=== PATIENT | male | born 1940 | race Caucasian/White ===

== ENCOUNTER 2019-08-05 00:36 | Inpatient (IN) | payer MEDICARE, MEDICAID ==
[~2019-08-05] VITALS: Ht 165.1 cm; Wt 95.5 kg
--- NOTE | 2019-08-05 01:35 | NUR ---
GIANCARLOADELA CARO a 78 year old M admitted via wheel chair from the EMERGENCY ROOM as a voluntary admission. Arrived on unit at 0135. ALLERGIES: NKA. Vital signs are: [id number] 148/82 . The client's POA,Gayathri Andrew,gave verbal consent for the following forms with stated understanding: Authorization For The Release of Medical Information, Clothing List, Consent to Voluntary Admission and Hospitalization, Consent and Release Forms/Receipt of Rights, Acknowledgement of Advance Directive Information, Behavioral Health Consent Form, and Informed Consent of Medications. Admitted under the services of Dr. DAVID ZENG,[facility]. A search was conducted and hazardous articles were removed. Client was oriented to the unit. LIGIA FITCH
--- NOTE | 2019-08-05 01:40 | NUR ---
Patient sitting in gerichair on admission to floor. Patient very fidgety and made measuring wounds difficult at this time.
[2019-08-05] MEDS ORDERED: ASPIRIN ADULT L81 M2 PO (01:58)
[2019-08-05] MEDS ORDERED: ARICEPT10 M1 PO (01:59)
[2019-08-05] MEDS ORDERED: COLACE100 MG PO (02:01)
[2019-08-05] MEDS ORDERED: DEPAKOTE500 M1 PO (02:02)
[2019-08-05] MEDS ORDERED: ZESTORETIC 10-1 EACH PO (02:04)
[2019-08-05] MEDS ORDERED: CLARITIN10 MG PO (02:07)
[2019-08-05] MEDS ORDERED: MEMANTINE HCL5 MG PO (02:08)
[2019-08-05] MEDS ORDERED: GLUCOPHAGE500 M1 PO (02:09)
--- NOTE | 2019-08-05 02:20 | NUR ---
DR GONZALEZ NOTIFIED OF MEDICAL CONSULT & MED REQ IS READY FOR REVIEW. SHE STATED CONSULT TO GO UNDER DR KING.
[2019-08-05 02:29] VITALS: BP 148/82
--- NOTE | 2019-08-05 05:22 | NUR ---
ADELA CAMACHO [id number] Please refer to the physician's history and physical for past medical history, comorbid conditions, and allergies. Diagnosis: INTERMITTENT EXPOLSIVE DISORDER Salty Score: 18,AT RISK WOUND DESCRIPTIONS: This nurse is unable to evaluate patient for skin impairments at this time. Nurse caring for patient Toshia DE JESUS stated that patient had to be given PRN medications prior to being brought up for the ED due to patient striking at staff. Patient was 1 on 1 with secruity in the ED. Nurse caring for patient stated he has an area to periarea and intact scabbed areas noted to right lower extremity. ED taken photographs prior to admission of periarea and right lower extremity. Nurse caring for patient stated patient is incontient of urine. Surface the patient is resting on: Mark Anthonyair SKIN PREVENTION RECOMMENDATION: 1. Pressure redistribution support surface as appropriate 2. Elevate heels 3. Remove boots/TEDS every shift and reapply 4. Head of bed 30 degrees as tolerated 5. Assess nutrition and hydration 6. Manage moisture 7. Avoid the use of containment devices while in bed 8. Use absorptive products on surfaces limit layers of linens on bed 9. Turn and reposition every 1-2 hours in bed and every 1 hour in chair as tolerated 10. Weight shifts every 15 minutes while up in chair 11. Offloading with pillows or device to keep heels elevated off bed 12. Monitor skin at least every shift 13. Inspect under medical devices twice a day WOUND TREATMENT RECOMMENDATIONS: Patient is ordered nystatin powder every 12 hours for periarea. Wheelchair cushion when oob Cleanse buttocks with soap and water and apply hydraguard every shift and prn for soiling. D/C fran
--- NOTE | 2019-08-05 05:43 | NUR ---
Patient slept approx. 1.5 hours since admission. Q 15 minute safety checks continued and maintained.
--- NOTE | 2019-08-05 07:54 | NUR ---
PHYSICAL THERAPY Screen and PT eval received will follow Nathalie Lion PT
[2019-08-05 08:00] VITALS: BP 153/85
--- NOTE | 2019-08-05 08:00 | NUR ---
Treatment Plan meeting was held with Dr. Larkin, COBY Diaz, RN, AT, ASTRO TECHNICIAN-S and [employer] in attendance. Plan for discharge next week. Pt. came to [facility] from [place]. Will reach out to facility today to discuss discharge Planning.
--- NOTE | 2019-08-05 08:41 | NUR ---
Dr. Guardado notified of wound care recommendations.
--- NOTE | 2019-08-05 11:25 | NUR ---
Spoke with Anais at [facility]. 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 Provided with updates and discharge plan for next week.
--- NOTE | 2019-08-05 11:31 | NUR ---
AM GROUP PT WAS PRESENT FOR MORNING GROUP THERAPY RECLINED IN A PAMELLA CHAIR SLEEPING. PT WOKE AND WAS ATTEMPTING TO PUT THE FOOTSTOOL DOWN. PT THEN ATTEMPTED TO GET UP ON HIS OWN WITHOUT AWARENESS FOR HIS SAFETY. PT STATED, "I GOTTA TAKE A LEAK" WHEN ASKED TO REMAIN SEATED AND WAIT FOR HELP, PT PUSHED ME ASIDE AND ATTEMPTED TO STAND ON HIS OWN. PT PITCHED FORWARD BUT I WAS ABLE TO GET HIM BACK IN THE CHAIR WITH HELP FROM NURSING.
--- NOTE | 2019-08-05 15:02 | NUR ---
Family meeting held via telephone with pt's daughter/DPOAHC Gayathri Lorrie. Gayathri provided patient's history. Per Gayathri, pt is a somewhat difficult person and is very sexist. Pt has a history of ETOH abuse. Discussed current medications. Confirmed discharge plan of pt returning to [facility].
--- NOTE | 2019-08-05 15:31 | NUR ---
PM GROUP PT DID NOT ATTEND AFTERNOON GROUP THERAPY. PT WAS IN BED RESTING.
--- NOTE | 2019-08-05 15:56 | NUR ---
Nursing screen received as well as occupational therapy orders. Will follow up with patient. Thank you. Bea Riley, OTR/L
--- NOTE | 2019-08-05 18:25 | NUR ---
P: IRRITABLE MOOD, DEMANDING AND THREATENING TO EXIT SEEK WHEN ASSIST TO BATHROOM FOR TOILETING NEEDS. REFUSED TO USE BATHROOM FOR TOILETING NEEDS ONCE VOICING THE NEEDS TO HAVE TO GO TO THE BATHROOM. I: ONE ON ONE, REDIRECTION, PROVIDED WITH LUNCH AND SPACE. R: EFFECTIVE. PATIENT IS ALERT TO SELF, STATED HIS NAME THAN STATE "I DON'T CARE ABOUT EVERYTHING ELSE" DURING INTERVIEW. PATIENT PROVIDE WITH SPACE. REINTERVIEWED AFTER LUNCH. MOOD IMPROVED. PATIENT DENIES ANY HALLUCINATIONS, DELUSIONS, HI/SI OR PAIN. LONG/SHORT TERM MEMORY DEFICITS. 2-3 PERSON ASSIST WITH ACTIVITIES OF DAILY LIVING, CONTINENT OF BOWEL AND BLADDER, SET UP FOR MEALS, INTAKES ARE GOOD WITH ADEQUATE FLIUDS. Q 15 MINUTE SAFETY CHECKS MAINTAINED. MEDICATION COMPLAINT AFTER GETTING UP FROM SLEEPING THIS MORNING. PATIENT HAS BEEN RESTING MOST OF THE DAY. NO VOICE COMPLAINTS NOTED. P: CONTINUE TO MONITOR MOOD, AGGRESSION, REFUSAL OF MEDICATIONS. PROVIDE ONE ON ONE AND REDIRECTION NEEDED
[2019-08-05 20:00] VITALS: BP 110/70
--- NOTE | 2019-08-05 20:29 | NUR ---
EVENING/BINGO PT RESTING IN HOPE MAJORITY OF GROUP. PT DID NOT WAKE UNTIL END OF GROUP AND REMAINED IN HALLWAY IN FRONT OF NURSES STATION. PT WILL CONTINUE TO BE ENCOURAGED TO ATTEND AND PARTICIPATE IN FUTURE GROUP SESSIONS.
--- NOTE | 2019-08-05 21:52 | NUR ---
Patient alert to self and refused to answer any other questions. Mood calm and pleasant at this time. Memory deficits noted. Patient denies any hallucinations,SI/HI, or delusions. No overt s/s of responding to internal stimuli noted at this time. Patient compliant with HS medications without any difficulty. Patient allowed for his blood sugar to be checked but stated " I am not going to be having this done very much longer". Redirected/reoriented when needed/appropriate. Provided 1:1 for emotional support and therapeutic communication. Patient was in gerichair isolative during group therapy and snack time. Plan to continue to encourage medication compliance and encourage interaction with staff and other patients. Also continue to provide emotional support and redirect/reorient when needed/appropriate. Will continue to monitor moods/behaviors. Q 15 minute safety checks continued and maintained. See [facility] flowsheet for further documentation.
--- NOTE | 2019-08-06 00:13 | NUR ---
24 HR chart check completed.
--- NOTE | 2019-08-06 05:27 | NUR ---
ADELA CAMACHO [id number] Please refer to the physician's history and physical for past medical history, comorbid conditions, and allergies. Diagnosis: INTERMITTENT EXPOLSIVE DISORDER Salty Score: 18,AT RISK WOUND DESCRIPTIONS: Wound Number: 1 periarea/groin. Dark red areas noted. No open areas at time of assessment. Musty odor noted at time of assessment. Patient buttocks was red and blanchable at time of assessment. No open areas noted to buttocks at time of assessment. Patient was incontient of urine at time of assessment. Pt was slightly aggressive towards staff when it came to providing pericare. Pericare was provided with much encouragement by two RN's and one neisha. Wound Number: 2 Location of the wound: right lower extremity Thickness: Partial Size: 0.7cm x 0.5cm x 0.1cm Tunneling: none Undermining: none Sinus Tract: none Presence of Exudate: Serous Amount: Light Color: Red Odor: None Periwound Skin Appearance: Erythema with intact scabbed areas Wound edges: approximated Pain (associated with wound): none at time of assessment How does patient state this happened? pt unable to state how this happened Surface the patient is resting on: Gerichair SKIN PREVENTION RECOMMENDATION: 1. Pressure redistribution support surface as appropriate 2. Elevate heels 3. Remove boots/TEDS every shift and reapply 4. Head of bed 30 degrees as tolerated 5. Assess nutrition and hydration 6. Manage moisture 7. Avoid the use of containment devices while in bed 8. Use absorptive products on surfaces limit layers of linens on bed 9. Turn and reposition every 1-2 hours in bed and every 1 hour in chair as tolerated 10. Weight shifts every 15 minutes while up in chair 11. Offloading with pillows or device to keep heels elevated off bed 12. Monitor skin at least every shift 13. Inspect under medical devices twice a day WOUND TREATMENT RECOMMENDATIONS: Continue wheelchair cushion when oob. D/C nystatin powder Cleanse periarea/groin with soap and water pat area dry then apply nystatin cream every 8 hours. Continue hydraguard to buttocks every shift and prn for soiling. Partial thickness guidelines: Cleanse right lower extremity with nss and apply sureprep around the wound hydrogel to wound bed and cover with optifoam gentle every 2 days and prn for soiling. Heel raiser pro boots to bilateral feet while in bed or gerichair.
--- NOTE | 2019-08-06 05:34 | NUR ---
Patient did not sleep at all throughout shift. Q 15 minute safety checks continued and maintained.
--- NOTE | 2019-08-06 06:14 | NUR ---
AM BEDSIDE GLUCOSE 133
--- NOTE | 2019-08-06 08:00 | NUR ---
Treatment Plan meeting was held with Dr. Larkin, COBY Diaz, RN, AT, SHIFT MECHANIC-S and Bessemer Converter Blower in attendance. Plan for discharge Next week. Pt. will return to [place].
[2019-08-06 08:03] VITALS: BP 154/83
--- NOTE | 2019-08-06 08:30 | NUR ---
Occupational therapy orders received and OT evaluation completed in full on floor three. Patient precautions include fall risk, ww use, grace chair, decreased command follow, A&OxName, and chair alarm. Per OT eval, OT recommends a SNF. Patient would benefit from continued OT treatment to maximize safety and independence with ADLs, mobility, and transfer. [place], 13867. Thank you. Bea Riley, OTR/L
--- NOTE | 2019-08-06 08:47 | NUR ---
DR. FARIA ON UNIT TO ASSESS PT, UPDATE PROVIDED.
--- NOTE | 2019-08-06 09:26 | NUR ---
Dr. Zhou notified of wound care recommendations.
--- NOTE | 2019-08-06 11:41 | NUR ---
AM GROUP PT WAS PRESENT FOR MORNING GROUP THERAPY RECLINED IN A PAMELLA CHAIR SLEEPING. PT AWOKE A FEW TIMES BUT WENT RIGHT BACK TO SLEEP. PT IS UNABLE TO PARTICIPATE AT THIS TIME DUE TO COGNITIVE IMPAIRMENT.
--- NOTE | 2019-08-06 11:44 | NUR ---
PHYSICAL THERAPY Eval completed moderate level of complextiy 45084 recomend SNF vs return to facility with f/u therapy, pt resident of [facility] not sure whatlevel of care facility has. PT to work on transfers, abm, balance/safety and strengthening. Nathalie Lion PT
--- NOTE | 2019-08-06 11:45 | NUR ---
SPOKE WITH NURSE AT [facility], PER NURSE PT WAS AMBULATING PRIOR TO FALL ON THE 10TH AND AFTER THE FALL PT BECAME INCREASINGLY UNSTEADY AND HAS ALWAYS LEANED TO THE RIGHT SIDE WITH HIS UPPER TRUNK AREA. SPOKE WITH DR HERNANDEZ, HE IS AWARE AND WILL ORDER A HEAD CT ONCE PT MEDS ARE EFFECTIVE. WILL UPDATE FAMILY.
--- NOTE | 2019-08-06 14:36 | NUR ---
Received a call from pt's daughter/DPOAHC Gayathri Andrew who was voicing concern about pt not walking. Gayathri stated that pt was walking at the and that her biggest concern was that pt would end up in a wheelchair if pt was admitted to [facility]. Gayathri also voiced concern that pt was not med-compliant. Reviewed pt's chart while Gayathri was on the phone and informed her that pt was being seen by PT and reviewed pt's medications. Also, informed Gayathri that Dr Larkin is wanting a head CT of pt but was hoping that it could be done without sedating pt. Therefore, he was giving pt a few days to hopefully calm down before attempting head CT. Informed Gayathri that this comic writer would speak to nursing and nurse practitioner and then call Gayathri back with further information. [place] from RN, who had just spoken to where pt resides, that pt had not been walking independently since a recent fall on 08/01. Phoned Gayathri back with this additional information. Gayathri confirmed that RN had also spoken to her and provided additional information. Gayathri also stated that pt had seen a neurologist Dr Fong ([phone]) after an earlier fall. Gayathri provided contact phone number of doctor in case it is needed for further information.
--- NOTE | 2019-08-06 15:51 | NUR ---
Clinical Updates faxed to [place] [phone]. Left Message for Kim in Admissions of plans to discharge Next week.
--- NOTE | 2019-08-06 16:04 | NUR ---
P: PT REFSUED ALL AM PO MEDS, PT PARANOID STATING "WHERE DID YOU GET THOSE FROM, I STOPPED THOSE A LONG TIME AGO." PT REFUSED DRESSING TO RIGHT LOWER EXTREMITIY. PT MOOD IS IRRITABLE. I: ENCOURAGE MED COMPLIANCE, PROVIDE EMOTIONAL SUPPORT AND 1:1 FOR PT TO VOICE FEELINGS, PRESENT REALITY AND RE-ORIENT R: PT ALER TO PERSON ONLY, CONFUSION AND SHORT TERM MEMORY DEFICITS NOTED PER PT BASELINE. PT CONTINUED TO REFUSE ALL AM PO MEDS, TOOK 1300 MEDS WITHOUT ISSUE. PT REMAINS IRRITBALE AT TIMES. NO HALLUCINATIONS NOTED. NO SUICIDAL THOUGHTS OR BEHAVIORS NOTED. P: MONITOR PT BEHAVIORS ON Q15 MINS SAFETY CHECKS, ENCOURAGE MED COMPLIANCE, PROVIDE EMOTIONAL SUPPORT AND 1:1 FOR PT TO VOICE FEELINGS, RE-ORIENT AND PERSENT REALITY NEEDED.
--- NOTE | 2019-08-06 18:01 | NUR ---
2 STAFF TOILETED AND CHANGED PT CLOTHING. PT BECAME VERBALLY AGITATED WITH STAFF, CALMED ONCE CARE COMPLETED. PT WLAKED OUT OF THE BATHROOM AND STRAIGHT INTO THE DINING ROOM UNASSISTED, STAFF STATED "WELL LOOK AT YOU UP WALKING", PT SMILED AND CONTINUED WALKING OVER TO THE CHAIR AND SAT DOWN.
[2019-08-06 19:26] VITALS: BP 136/88
--- NOTE | 2019-08-06 20:15 | NUR ---
GOING IN AND OUT OF OTHERS ROOM. INCREASED AGGITATION WITH REDIRECTION. HE THEN TOOK PILLOW OFF HIS BED AND SAID HE WAS LEAVING. WHEN REDIRECTED HE CHARGED A NURSE AND MILIEU ATTEMPTING TO KNOCK THEM OUT OF THE WAY. ASSIST OF 4 NEEDED TO GET HIM HIM CHAIR.
--- NOTE | 2019-08-06 21:08 | NUR ---
Patient alert to self and refused to answer any other questions. Mood irritable and agitated at this time. Memory deficits noted. Patient denies any hallucinations,SI/HI, or delusions. No overt s/s of responding to internal stimuli noted at this time. Patient refused HS medications. Redirected/reoriented when needed/appropriate but unreceptive with this at times. Patient place in gerichair in front of nurses' desk to observe moods/behaviors. Provided 1:1 for emotional support and therapeutic communication. Plan to continue to encourage medications compliance. Continue to redirect/reorient when needed/apppropriate and continue to provide emotional support. Will continue to monitor moods/behaviors. Q 15 minute safety checks continued and maintained. See [facility] flowsheet for further documentation.
--- NOTE | 2019-08-07 00:23 | NUR ---
24 HR chart check completed.
--- NOTE | 2019-08-07 04:41 | NUR ---
Upon discharge recommend patient to follow up for wound care in outpatient setting continue current wound care orders at discharging facility
--- NOTE | 2019-08-07 05:27 | NUR ---
Patient slept approx. 3 hours throughout shift. Q 15 minute safety checks continued and maintained.
--- NOTE | 2019-08-07 06:11 | NUR ---
Patient refused bedside blood sugar check to be done.
--- NOTE | 2019-08-07 07:35 | NUR ---
PHYSICAL THERAPY Patient seen this am for therapy visit and was semi reclined in Quiet room [facility] chair upon therapist arrival. Patient identified by name / and reports no c/o's pain at this time. OT assistant women's rowing coach was present this morning for observation only as patient transfers sit to stand MOD A x2, then ambulated with use of wh walker, MIN A, 40'x 2. Patient demonstates increased difficulty with safe walker navigaiton, unsteady gait pattern, and R side lean. Patient also fatiuges quickly, needing seated rest between gait trials. Patient returned to [facility] chair in activity room with lap tray and body alarm awaiting breakfast under [facility] staff Supervision. Will continue per POC as tolerated, totla treatment time 14 minutes. Natan Barrera, HIGH SCHOOL COACH
--- NOTE | 2019-08-07 07:55 | NUR ---
OT NOTE Pt was seen this A.M. 1:1 for 15 minute OT session with ENGRAVED ROLLER INSPECTOR and nursing staff present for observation only. Upon arrival pt was sitting upright in the lena chair in the quiet room. Pt identified by name and and had no complaints at this time. Sit to stand completed from chair level with modA x 2 and use of w/w for UE support. Challenged pt's static standing tolerance needed for increased I in self care tasks and functional transfers and pt was able to tolerate aprox 60 seconds at a time before sitting due to fatigue. Pt presented with R lateral lean and was very unsteady requiring Yolanda to correct. Functional mobility completed around the room with Yolanda and use of w/w, throughout turning pt had LOB to the R that required modA to correct. Pt required multiple verbal prompts throughout due to poor command follow. Pt was left sitting upright in the dining mcbride in his lena chair with body alarm activated for safety and lap tray in place under U staff supervision. Continue with rec D/C plan to SNF. JEAN PIERRE West/Ju
--- NOTE | 2019-08-07 08:45 | NUR ---
DR. FARIA ON UNIT TO ASSESS PT, UPDATE PROVIDED.
[2019-08-07 08:48] VITALS: BP 149/80
--- NOTE | 2019-08-07 09:05 | NUR ---
PT NOTED TO BE INCONTINENT OF URINE, STAFF ASSISTED PT TO BATHROOM DOOR WHICH HE REFUSED TO STAND AND AMBULATE INTO BATHROOM. ATTEMPTED TO REAPPROACH BY BRINGING HIM IN TO THE BATHROOM COMPLETLY. TO STAND FOR HOC, PT RESISTIVE EVEN WHEN INSTRUCTIONS WERE GIVEN AND EXPLAINED ALL STEPS. PT ATTEMPTED TO KICK STAFF, ATTEMPTED TO HEAD-BUTT THIS NURSE AND SPIT AT MHW AND NURSE. 2 ASSIST TO HOLD PT UP AND 1 STAFF MEMBER TO PROVIDE VALE CARE AND REAPPLY INCONTINENT BRIEF WITH PANTS, PT ATTEMPTED TO KICK AT STAFF, TENSE ARMS PULLING STAFF LEFT AND RIGHT WITH HIS FRAME. NO INJURIES AT END OF TOILETING. PT CALMED WHEN CARE WAS COMPLETED.
--- NOTE | 2019-08-07 10:06 | NUR ---
Dr. Zhou notified of wound care recommendations.
--- NOTE | 2019-08-07 10:35 | NUR ---
P: PT REFUSED AM PO MEDS, PARANOID, ASKING "WHERE DID THOSE COME FROM? CYNDY NEVER SEEN THOSE BEFORE, IM NOT TAKING THEM, WHO GAVE YOU THOSE." PT IRRITABLE I: ENCOURAGE MED COMPLIANCE, PROVIDE EMOTIONAL SUPPORT AND 1:1 FOR PT TO VOICE FEELINGS, PRESENT REALITY ADN RE-ORIENT R: PT ALERT TO PERSON ONLY, CONFUSION AND SHORT TERM MEMORY DEFICITS NOTED PER PT BASELINE. PT CONTINUES TO BE PARANOID RE: MEDICATIONS , PT REFUSED AM PO MEDS APPROACHED BY MUTLIPLE STAFF MEMBERS, UNABLE TO PROVIDE MED EDUCATION D/T COGNITION. PT AMBULATED WITH WHEELED WALKER AND 1 STAFF ASSIST THIS MORNING, GAIT UNSTEADY. PT UP TO GERICHAIR AT THIS TIME D/T UNSTEADY GAIT AND LACK OF SAFETY AWARENESS. PT CONTINENT OF BOWEL AND BLADDER, EPISODES OF INCONTINENCE NOTED, CARE PROVIDED NEEDED. PT WILL BECOME VERBALLY AGITATED WITH STAFF DURING CARE. P: MONITOR PT BEHAVIORS ON Q15 MIN SAFETY CHECKS, PROVIDE EMOTIONAL SUPPORT AND 1:1 FOR PT TO VOICE FEELINGS, ENCOURAGE MED COMPLIANCE, PROVIDE LOW STIMULATION ENVIRONMENT FOR PT TO CALM.
--- NOTE | 2019-08-07 11:31 | NUR ---
AM GROUP/SISMARISOLUS PT DID NOT ATTEND MORNING GROUP THERAPY. PT WAS IN A QUIET ROOM RESTING
--- NOTE | 2019-08-07 12:20 | NUR ---
Treatment Plan meeting held with Dr. Trae RN and kit planner. Plan for discharge next week with return to [facility].
--- NOTE | 2019-08-07 15:35 | NUR ---
PM GROUP/FINGER PAINTING PT WAS PRESENT FOR AFTERNOON GROUP THERAPY RECLINED IN A PAMELLA CHAIR SLEEPING. PT WOKE AT THE END OF GROUP AND SAT QUIETLY.
[2019-08-07 19:39] VITALS: BP 149/84
--- NOTE | 2019-08-07 23:39 | NUR ---
PT: PT HAS BEEN CONFUSED AND AGGRESSIVE WITH STAFF DURING ADL'S. I: PT HAS BEEN REAPPROACHED BY HIS NURSE AND OTHER STAFF MEMBERS, HE WAS REDIRECTED TO HIS ROOM, TOILETED AND OFFERED 1;1 SUPPORT. R: PT TOOK ALL HIS MEDICATION AND CONT. TO HAVE INTERMITTENT CONFUSION, PT IS SLEEPING AT THIS TIME. P: CONTINUE TO MONITOR FOR HALLUCINAITIONS/DELUSIONS, PROVIDE REORIENTATION, REDIRECTION APPROPRIATE, CONTINUE TO MONITOR AGGRESSION. CONTINUE TO MONITOR Q 15 MIN. PER POLICY FOR SAFETY.
--- NOTE | 2019-08-08 06:06 | NUR ---
PT SLEPT APPROX.1 HOUR DURING VEHICLE INSURANCE AGENT. Q 15 MIN. SAFTEY CHECKS CONT. AND MAINTAINED. 24 HR chart check completed.
--- NOTE | 2019-08-08 07:30 | NUR ---
PHYSICAL THERAPY Patient was sound asleep in activity room Mimi chair and unable to arouse this morning for therapy. Therapist advised by [facility] staff that patient only slept 1 hour last night and remains pretty Lethargic and not appropriate for treatment at this time. Will continue per POC as able. Natan Barrera, DELTA SYSTEM FREIGHT CAR CLEANER
--- NOTE | 2019-08-08 07:40 | NUR ---
OT NOTE Attempted to see pt this A.M. for OT session and upon arrival pt was asleep in the lena chair. Pt was unable to arouse to verbal or tactile stimuli and breakfast had just arrived . Will check back at a later time/date and continue with POC as able. JEAN PIERRE West/Ju
--- NOTE | 2019-08-08 08:00 | NUR ---
Treatment Plan meeting was held with COBY Diaz, RN, AT, PAINTINGS RESTORER-S and Adjunct Psychology Professor in attendance. Plan for discharge Next week with return to [place].
[2019-08-08 08:18] VITALS: BP 150/82
--- NOTE | 2019-08-08 11:30 | NUR ---
AM GROUP PT WAS PRESENT FOR MORNING GROUP THERAPY RECLINED IN A PAMELLA CHAIR SLEEPING. PT DID NOT WAKE DURING GROUP
--- NOTE | 2019-08-08 14:51 | NUR ---
PHYSICAL THERAPY CO-SIGN I approve of the Physical Therapy notes written above. Nathalie Lion PT
--- NOTE | 2019-08-08 14:53 | NUR ---
OCCUPATIONAL THERAPY CO-SIGN I approve of the Occupational Therapy notes written above. Bea Riley, OTR/L
--- NOTE | 2019-08-08 16:23 | NUR ---
Clinical Updates faxed to [place].
--- NOTE | 2019-08-08 17:47 | NUR ---
P- PT REFUSED AM MEDICATIONS, NONSENSICAL SPEECH AT TIMES, PT BECOMES COMBATIVE WITH HANDS ON CARE. DIFFICULT TO REORIENT OR REDIRECT PT AT TIMES. I- ORIENTATION, MOOD AND BEHAVIOR ASSESSED. ASSESSED PT FOR SI/HI, INTENT OR PLAN. ASSESSED PT FOR S/S HALLUCINATIONS, PARANOIA AND/OR DELUSIONS. MEDICATIONS ADMINISTERED PER PHYSICIAN'S ORDERS. ASSISTANCE WITH ADL CARE PROVIDED NEEDED. ENCOURAGED PT TO ATTEND AND PARTICIPATE IN [facility] MILIEU GROUPS AND ACTIVITIES APPROPRIATE. R- PT IS ALERT AND ORIENTED TO NAME ONLY, OTHERWISE CONFUSED. MEMORY GAPS NOTED. RESPS EASY AND EVEN ON ROOM AIR. MOOD IS LABILE, PT BECOMES EASILY AGITATED UPON ATTEMPTS TO PROVIDE HANDS ON CARE OR ADMINISTER MEDICATIONS. PT REFUSED ALL AM MEDICATIONS DESPITE MULTIPLE ATTEMPTS. PT STATES "WHY DON'T YOU KISS MY ASS?". PT SWATTING NURSE AWAY. PT COMBATIVE WITH HANDS ON CARE THIS AM, REQUIRED STAFF ASSIST X3 FOR TOLIETING. PT LESS COMBATIVE THIS AFTERNOON BUT REMAINS RESISTIVE TO HANDS ON CARE. SPEECH IS NONSENSICAL, PT IS DIFFICULT TO REORIENT OR REDIRECT D/T LEVEL OF CONFUSION. PT FED SELF AFTER SET UP ASSIST, PT REFUSED BREAKFAST BUT ATE 100% OF LUNCH AND DINNER WITH ADEQUATE FLUID INTAKE. NO DISTRESS NOTED. P- PLAN TO CONTINUE CURRENT TREATMENT, CONTINUE TO MONITOR MOOD AND BEHAVIORS, PROVIDE APPROPRIATE REORIENTATION, REDIRECTION AND 1:1 NEEDED. CONTINUE TO ENCOURAGE MEDICATION COMPLIANCE WELL GROUP ATTENDANCE AND PARTICIPATION APPROPRIATE PER PT CONDITION.
[2019-08-08 20:00] VITALS: BP 142/82
--- NOTE | 2019-08-09 02:46 | NUR ---
P-AGGRESSION, COMBATIVE I-REDIRECTION WITH 1:1 THERAPEUTIC INTERVENTIONS AND PRESENT REALITY. EDUCATE AND ENCOURAGE MEDICATION COMPLIANCE R-PATIENT MEDICATION COMPLIANT. PATIENT ABLE TO MAKE NEEDS KNOWN THROUGHTOUT SHIFT. PATIENT PROVIDED NOURISHMENT AND FLUIDS AT HS. PATIENT STRIKING OUT AT NURSING STAFF AND GRABBING NURSING STAFF. PATIENT NAME CALLING. PATIENT ATTEMPTING TO KICK NURSING STAFF. PATIENT IRRITABLE AND COMBATIVE WHEN ATTEMPTING TO PROVIDE CARE. P-CONTINUE TO ENCOURAGE MEDICATION COMPLIANCE, CONTINUE TO PRESENT REALITY, ENCOURAGE GROUP THERAPY WHILE AWAKE
--- NOTE | 2019-08-09 05:56 | NUR ---
PATIENT SLEPT 4 HOURS OF INTERRRUPTED SLEEP THROUGHOUT SHIFT. Q 15 MINUTE CHECKS MAINTAINED. 24 HR chart check completed.
[2019-08-09 07:35] VITALS: BP 134/70
--- NOTE | 2019-08-09 09:15 | NUR ---
DR. FARIA ON UNIT TO ASSESS PT, UPDATE PROVIDED.
--- NOTE | 2019-08-09 11:36 | NUR ---
AM GROUP/BARBARA! PT UNABLE TO ATTEND AT THIS TIME DUE TO LEVELS OF COGNTION AND RESTING IN QUIET ROOM.
--- NOTE | 2019-08-09 12:41 | NUR ---
P: PT REFUSED AM PO MEDS. PT MOOD IS IRRITABLE. PT RESTLESS AT TIMES. I: ENCOURAGE MED COMPLIANCE, PROVIDE DIVERSIONAL ACTIVITIES, REAPPROACH NEEDED, PROVIDE LOW STIMULATION ENVIRONMENT FOR PT TO CALM, PROVIDE EMOTIONAL SUPPORT AND 1:1 FOR PT TO VOICE FEELINGS. R: PT ALERT TO PERSON ONLY, CONFUSION AND SHORT TERM MEMORY DEFICITS NOTED PER PT BASELINE. PT CONTINUES TO REFUSE AM PO MEDS, UNABLE TO PROVIDE MED EDUCATION D/T COGNITION. PT CONTINUES TO BE RESTLESS AND IRRITABLE AT TIMES. PT UP TO GERICHAIR AT THIS TIME DUE TO UNSTEADY GAIT AND LACK OF SAFETY AWARENESS. PT WILL AMBULATE SHORT DISTANCES WITH WHEELED WALKER AND 2 STAFF ASSIST. PT INCONTINENT OF BOWEL AND BLADDER, CARE PROVIDED NEEDED. P: MONITOR PT BEHAVIORS ON Q15 MIN SAFETY CHECKS, ENCOURAGE MED COMPLIANCE, PROVIDE LOW STIMULATION ENVIRONMENT FOR PT TO CALM, OFFER DIVERSIONAL ACTIVITIES, PROVIDE EMOTIONAL SUPPORT AND 1:1 FOR PT TO VOICE FEELINGS
--- NOTE | 2019-08-09 15:48 | NUR ---
PM GROUP/ART/GAME PT IN ATTENDANCE SITTING QUIETLY. PT KEPT ATTEMPTING TO SCOOT DOWN IN CHAIR. MHW TOOK PT OUT OF ACTIVITY TO TAKE CARE OF NEEDS AND READJUST POSITION IN CHAIR. PT BACK IN ACTIVITY ROOM RELAXING WITH NO AGGRESSION, AGITATION, OR PARANOIA EXPRESSED AT THIS TIME. PT WILL CONTINUE TO ATTEND FUTURE RGOUP SESSIONS AND BE ENCOURAGED TO PARTICIPATE TO BEST OF ABILITY.
[2019-08-09 19:49] VITALS: BP 125/70
--- NOTE | 2019-08-10 01:00 | NUR ---
P-AGGRESSION, COMBATIVE I-REDIRECTION WITH 1:1 THERAPEUTIC INTERVENTIONS AND PRESENT REALITY. EDUCATE AND ENCOURAGE MEDICATION COMPLIANCE R-PATIENT MEDICATION COMPLIANT. PATIENT ABLE TO MAKE NEEDS KNOWN THROUGHTOUT SHIFT. PATIENT PROVIDED NOURISHMENT AND FLUIDS AT HS. PATIENT STRIKING OUT AT NURSING STAFF AND GRABBING NURSING STAFF. PATIENT NAME CALLING. PATIENT ATTEMPTING TO KICK NURSING STAFF. PATIENT IRRITABLE AND COMBATIVE WHEN ATTEMPTING TO PROVIDE CARE. PATIENT STOMPING ON NURSES FEET AND ATTEMPTING TO PINCH NURSING STAFF. P-CONTINUE TO ENCOURAGE MEDICATION COMPLIANCE, CONTINUE TO PRESENT REALITY, ENCOURAGE GROUP THERAPY WHILE AWAKE
--- NOTE | 2019-08-10 06:17 | NUR ---
PATIENT DID NOT SLEEP THROUGHOUT SHIFT. Q 15 MINUTE CHECKS MAINTAINED. 24 HR chart check completed.
[2019-08-10 07:51] VITALS: BP 143/75
--- NOTE | 2019-08-10 09:03 | NUR ---
DR FARIA ON UNIT TO ASSESS PT, UPDATE PROVIDED.
--- NOTE | 2019-08-10 11:59 | NUR ---
AM GROUP/EXERCISE/STORY/ART PT ATTENDED AND PARTICIPATED SOME DURING THE STORY. PT EXPRESSING WHICH RIDLEY HE LIKES AND ATTEMPTING TO DISCUSS THEM. PT HARD TO UNDERSTAND AT TIMES. PT EXPRESSES NO AGRESSION, AGITATION, OR PARANOIA AT THIS TIME. PT WILL CONTINUE TO ATTEND AN DPARTICIPATE IN FUTRUE GROUP SESSIONS TO BEST OF ABILITY.
--- NOTE | 2019-08-10 13:39 | NUR ---
P: PT REFUSED AM PO MEDS. PT IRRITABLE WITH STAFF AND PEERS. PT RESTLESS AND AGITATED AT TIMES. I: PROVIDE EMOTIONAL SUPPORT AND 1:1 FOR PT TO VOICE FEELINGS, ENCOURAGE MED COMPLIANCE, OFFER DIVERSIONAL ACTIVITIES, PROVIDE LOW STIMULATION ENVIRONMENT FOR PT TO CALM R: PT ALERT TO PERSON ONLY, CONFUSION AND SHORT TERM MEMORY DEFICITS NOTED PER PT BASELINE. PT CALM, MOOD REMAINS IRRITABLE. PT CONTINUES TO BE RESLTESS AT TIMES. PT CONTINUES TO REFUSE AM PO MEDS, UNABLE TO PROVIDE MED EDUCATION. NO HALLUCINATIONS OR DELUSIONS NOTED. NO SUICIDAL THOUGHTS OR BEHAVIORS NOTED. PT UP TO A GERICHAIR D/T INABILITY TO AMBULATE INDEPENDENTLY, UNSTEADY GAIT AND LACK OF SAFETY AWARENESS. PT INCONTINENT OF BOWEL AND BLADDER. P: MONITOR PT BEHAVIORS ON Q15 MIN SAFETY CHECKS, ENCOURAGE MED COMPLIANCE, PROVIDE LOW STIMULATION ENVIRONMENT FOR PT TO CALM, OFFER DIVERSIONAL ACTIVITIES.
[2019-08-10 19:38] VITALS: BP 140/82
--- NOTE | 2019-08-10 22:44 | NUR ---
Patient alert to self and refused to answer any other questions. Mood calm and cooperative at this time. Memory deficits noted. Patient denies any hallucinations,SI/HI, or delusions. No overt s/s of responding to internal stimuli noted at this time. Patient compliant with HS medications with much encouragement. Redirected/reoriented when needed/appropriate but unreceptive with this at times. [facility] room across from nurses' desk to observe moods/behaviors. Provided 1:1 for emotional support and therapeutic communication. Plan to continue to encourage medications compliance. Continue to redirect/reorient when needed/apppropriate and continue to provide emotional support. Will continue to monitor moods/behaviors. Q 15 minute safety checks continued and maintained. See [facility] flowsheet for further documentation.
--- NOTE | 2019-08-11 04:06 | NUR ---
24 HR chart check completed.
--- NOTE | 2019-08-11 05:28 | NUR ---
Patient slept approx. 7 hours throughout shift. Q 15 minute safety checks continued and maintained.
--- NOTE | 2019-08-11 07:30 | NUR ---
PHYSICAL THERAPY Patient seen this am for therapy visit and was sitting in activity room Mimi chair upon therapist arrival. Patient identified by name / and reports no c/o's pain at this time. OT painter assistant was present for observation only as patient transfers sit to stand Min A. Patient ambulates with use of wh walker, 100'x 1, CGA, demonstrating decreased stride, R side gait deviation and several LOB during 90/180 turns. Patient also becomes retrograde posture when attempting to take a step backwards and requires multiple v/c's to improve safe walker navigation to avoid increased risk of falling. Patient returned to Mimi chair in acivity room and remained with lap tray and body alarm under U staff Supervision. Will continue per POC as tolerated, total treatmemt time 14 minutes. Natan Barrera, COUNCIL MEMBER
--- NOTE | 2019-08-11 07:45 | NUR ---
OT NOTE Pt was seen this A.M. 1;1 for 15 minute OT session with MENTAL HEALTH PROFESSIONAL and nursing staff present for observation only. Upon arrival pt was sitting semi reclined in the lena chair in the dining mcbride. Pt identified by name and and had no complaints at this time. Pt was taken to his bedroom where he completed sit to stand transfer from chair level with Yolanda X 2 and use of w/w for UE support. Functional mobility was then completed into the bathroom with Yolanda and use of w/w for UE support. Pt presented with R lateral lean the required Yolanda to correct. There pt stood sink side while washing his hands with Yolanda to correct retrograde posture and R lateral lean. Pt then completed functional mobility back to the lena chair with Yolanda and use of w/w. Pt had multiple LOB throughout when turning and stepping back that required modA to correct. Pt was left sitting upright in the lena chair in the dining mcbride under [facility] staff supervision, lap tray in place, and body alarm activated for safety. Continue with rec D/C plan to SNF. JEAN PIERRE West/Ju
--- NOTE | 2019-08-11 08:00 | NUR ---
Treatment Plan meeting was held with COBY Diaz, RN, AT, BAIL BONDSMAN-S and Circular Distributor in attendance. Plan for discharge when stable with return to [place].
[2019-08-11 08:11] VITALS: BP 138/84
--- NOTE | 2019-08-11 10:05 | NUR ---
DR. RICE ON UNIT TO ASSESS PATIENT.
--- NOTE | 2019-08-11 11:41 | NUR ---
NO AM GROUP
--- NOTE | 2019-08-11 12:49 | NUR ---
PATIENT IS ALERT AND ORIENT TO PERSON WITH CONFUSION. LONG/SHORT TERM MEMORY DEFICITS NOTED. MOOD IS STABLE, CALM DEMEANOR. COOPERATIVE WITH HANDS ON CARE. NO VOICED STATEMENT OF HI/SI OR PAIN. NO RESPONSE TO INTERNAL STIMULI. MEDICATION COMPLAINT. Q 15 MINUTE SAFETY CHECKS MAINTAINED. 1 PERSON ASSIST WITH ACTIVITIES OF DAILY LIVING, INCONTINENT OF BOWEL AND BLADDER. SET UP FOR MEALS, INTAKES ARE GOOD WITH ADEQUATE FLUIDS. AMBULATES ONE ASSIST, STEADY GAIT. INTERACTIVE WITH STAFF AND WATCHING TV WITH OTHER PATIENTS IN DINING ROOM. CONTINUE TO MONITOR FOR EXIT SEEKING, AGGRESSION AND MEDICATION COMPLAINCE. PROVIDE ONE ON ONE AND REDIRECTION NEEDED.
--- NOTE | 2019-08-11 15:11 | NUR ---
Shift chart check completed.
--- NOTE | 2019-08-11 15:45 | NUR ---
PM GROUP PT WAS PRESENT FOR AFTERNOON GROUP THERAPY RECLINED IN A PAMELLA CHAIR SLEEPING. PT WOKE AND ATE A BANANA AND WAS CONTENT TO OBSERVE. PT EXHIBITED NO AGITATION OR AGGRESSION WHILE IN GROUP.
[2019-08-11 19:37] VITALS: BP 136/82
--- NOTE | 2019-08-11 20:54 | NUR ---
EVENING GROUP/MLK DISCUSSION PT IN ATTENDNACE AND PARTICIPATED TO BEST OF ABILITY. PT BUILIDING WITH FOAM BLOCKS AND SORTS BY COLOR. PT PLEASANT AND SMILING THORUGHOUT GROUP. PT DID NOT BECOME AGITATED OR AGGRESSIVE AT THIS TIME. PT WILL CONTINUE TO ATTEND FUTURE GROUP SESSIONS AND PARTICIPATE TO BEST OF ABILITY.
--- NOTE | 2019-08-11 22:37 | NUR ---
P--CONFUSION, AGGRESSION, NONCOMPLIANCE I--DISCUSSED IMPORTANCE OF MEDICATIONS, REVIEWED EACH ONE INCLUDING INSULIN. MULTIPLE ATTEMPTS TO GET CLIENT TO TAKE MEDICATION. UNABLE TO REDIRECT HIM R--NO I DON'T NEED MEDICATION. MY SUGAR IS NOT THAT HIGH. I WILL TELL YOU IF I NEED MEDICATION NOW GO AWAY P--MONITOR FOR CHANGES IN BEHAVIOR/MOOD AND SAFETY. CONTINUE TO PROVIDE EMOTIONAL SUPPORT. DECREASE STIMULI WHEN WITH PATIENT.
--- NOTE | 2019-08-12 01:25 | NUR ---
24 HR chart check completed.
--- NOTE | 2019-08-12 01:26 | NUR ---
sleeping well in lena chair across from nursing station
--- NOTE | 2019-08-12 04:32 | NUR ---
Upon discharge recommend patient to follow up for wound care in outpatient setting continue current wound care orders at discharging facility
--- NOTE | 2019-08-12 06:07 | NUR ---
POOR SLEEP OF AROUND 3.5 HOURS. REMAINED IN CHAIR QUIETLY
--- NOTE | 2019-08-12 07:00 | NUR ---
PHYSICAL THERAPY Patient was semi reclined in Quiet room Mimi chair upon therapist arrival and presented with increased Lethargic behaviour. Patient unable to follow simple commands and not appropriate for therapy at this time. Will continue per POC as able. Natan Barrera, PRIVACY OFFICER
--- NOTE | 2019-08-12 07:35 | NUR ---
OT NOTE Attempted to see pt this A.M. for OT session and upon arrival pt was lethargic, very hard to arouse, and when he was able to be aroused pt was unable to follow simple commands. Pt's nurse reported that pt slept little to no time last night. Pt inappropriate for therapy at this time. Will check back at a later time/date and continue with POC as able. JEAN PIERRE West/Ju
[2019-08-12 07:43] VITALS: BP 142/68
--- NOTE | 2019-08-12 08:00 | NUR ---
Patient sitting quietly with no c/o discomfort. Respirations easy and regular. Vital signs stable. No overt distress. DOV BRENNAN
--- NOTE | 2019-08-12 08:00 | NUR ---
Treatment Plan meeting was held with Dr. Larkin, COBY Diaz, RN, AT, STRANDING MACHINE OPERATOR HELPER-S and Production Leader in attendance. Plan for discharge next week with return to [facility].
--- NOTE | 2019-08-12 11:43 | NUR ---
AM GROUP/WORRY INDERJIT PT WAS PRESENT FOR MORNING GROUP THERAPY BUT IS UNABLE/UNWILLING TO PARTICIPATE IN MOST ACTIVITIES OFFERED. PT SAT QUIETLY AND WATCHED TV OR NAPPED. PT EXHIBITED NO AGITATION OR AGGRESSION WHILE IN GROUP.
--- NOTE | 2019-08-12 14:35 | NUR ---
Received a voicemail message from pt's daughter Gayathri Andrew expressing concern about pt's status. Phoned Gayathri this AM and discussed pt status. Informed Gayathri that pt had been in the merry walker yesterday and educated her about the walker. Also informed Gayathri that in treatment team Dr Larkin stated that he was changing pt's med to Invega Sustenna due to pt's non-compliance with medication. Further explained that the Risperdal would then be discontinued. Gayathri then requested to speak to pt but since it was group time, asked that Gayathri call back around 11:30 to speak to pt. Gayathri agreed with this. This typewriter assembly and parts inspector then received a second phone call from Gayathri after she had spoken to pt on the phone. Gayathri stated that pt was 100% worse than when he was admitted and that he could not speak more than two words at a time on the phone. Gayathri then added that she had spoken to Shireen at [facility] where pt resides. According to Gayathri, Shireen stated that she received a call from a [facility] nurse last evening and that the caller told Shireen that pt was sprinting down the halls. Informed Gayathri that this typewriter assembly and parts inspector would see if the PHOTOGRAMMETRIC TECH was still on the unit and ask that the PHOTOGRAMMETRIC TECH call her. This typewriter assembly and parts inspector learned that PHOTOGRAMMETRIC TECH had left for the day. Observed pt ambulating with two BHWs. After pt sat down, observed pt talking with staff. Pt stated that he had talked with his daughter. Phoned Gayathri back and informed her that PHOTOGRAMMETRIC TECH had gone for the day but that this typewriter assembly and parts inspector would ask PHOTOGRAMMETRIC TECH to call her tomorrow. Also informed Gayathri that this typewriter assembly and parts inspector had observed pt walking and talking with staff. Gayathri voiced appreciation. Confirmed with Gayathri that this typewriter assembly and parts inspector would speak with Gayathri again tomorrow.
--- NOTE | 2019-08-12 15:39 | NUR ---
PM GROUP PT ATTENDED AFTERNOON GROUP THERAPY AND PARTICIPATED BY WORKING WITH THE FOAM BLOCKS. PT WAS QUIET AND FOCUSED AND WOULD INTERMITTENTLY NAP. PT EXHIBITED NO AGITATION OR AGGRESSION WHILE IN GROUP
--- NOTE | 2019-08-12 17:32 | NUR ---
PT MEDICATION COMPLIANT. PT ABLE TO JOKE AND LAUGH WITH STAFF. PT ATTEMPTING TO GET UP BY SELF, 2 STAFF STANDING BY TO ASSIST FOR SAFETY. PT IN W/C THIS AM, ATTEMPTED TO TRIAL MERRY WALKER ON PT, PT REFUSED TO STEP INTO MERRY WALKER. PT ENCOURAGED TO REST FOR AWHILE IN PAMELLA CHAIR AND EAT SUPPER. PT RECEPTIVE TO REDIRECTION. PT CONTINUES TO MAKE JOKES WITH STAFF. INVEGA SUSTENNA 156 GIVEN TO LEFT DELTOID TODAY, PT TOLERATED WELL. PT INCONTINENT OF BOWEL AND BLADDER. PERSONAL HYGIENE CARE PROVIDED BY STAFF. PT PLEASANT WITH HOC, NO VERBAL OR PHYSICAL AGGRESSION NOTED.
[2019-08-12 20:00] VITALS: BP 125/70
--- NOTE | 2019-08-13 00:19 | NUR ---
P-CONFUSED, ANGRY/IRRITABLE. I-PRESENT REALITY AND ORIENTATION. PROVIDE 1:1 WITH THERAPEUTIC INTERVENTIONS. ENCOURAGE MEDICATION COMPLIANCE. MONITOR SLEEP. R-"IM NOT TAKING THOSE MEDICATIONS, I NEED TO GO TO WORK". PT ALERT AND ORIENTED TO SELF, CONFUSED. PT REFUSED HS MEDICATIONS AFTER X3 ATTEMPTS, UNABLE TO PROVIDE EDUCATION DUE TO COGNITION. MILD AGITATION NOTED DURING INTERACTIONS AND HANDS ON CARE, REDIRECTABLE AT TIMES, NO COMBATIVE BEHAVIORS NOTED SO FAR THIS SHIFT, ASSIST X2. PT VOICES NO SI/HI, HALLUCINATIONS, OR PAIN. PT IN PAMELLA CHAIR NEAR NURSES STATION REQUESTED, STATING "I DONT WANT TO GO TO BED, I WANT TO LAY IN THE RECLINER". PT RESTING QUIETLY AT THIS TIME. NO SIGNS OR SYMPTOMS OF DISTRESS NOTED. P-CONTINUE TO MONITOR MOOD AN BEHAVIORS. PRESENT REALITY AND REORIENT NEEDED. PROVIDE 1:1 WITH THERAPEUTIC INTERVENTIONS. ENCOURAGE MEDICATION COMPLIANCE AND EDUCATE. MAINTAIN Q 15 MIN CHECKS.
--- NOTE | 2019-08-13 04:22 | NUR ---
24 HOUR CHART CHECK COMPLETED.
--- NOTE | 2019-08-13 05:52 | NUR ---
PATIENT OBSERVED ON Q 15 MIN CHECKS TO HAVE SLEPT APPROX 4 HOURS UNINTERRUPTED. NO SIGNS OR SYMPTOMS OF DISTRESS NOTED.
--- NOTE | 2019-08-13 07:30 | NUR ---
OT NOTE Pt was seen this A.m. 1:1 for 15 minute OT session with EPIC WILLOW ANALYST and nursing staff present for observation only. Upon arrival pt was sitting semi reclined in the lena chair in the dining mcbride. Pt identified by name and and had no complaints at this time. Pt was taken to his bedroom where he completed sit to stand from chair level with Yolanda and use of w/w for UE support. Functional mobility was then completed into the bathroom with CGA and use of w/w. Pt presented with bouts of unsteady gait that required Yolanda to correct. Pt stood sink side while washing his hands and face with Yolanda for assist with sequencing of task. While standing without UE support pt had two LOB that occured backwards that was able to be corrected with Yolanda. Pt also had LOb while vision was cut with washing his face that required Yolanda to correct. While turning in tight spaces and stepping backwards pt was unsteady requiring Yolanda to correct. Pt was left sitting semi reclined in the lena chair in the dining mcbride under [facility] staff supervision, body alarm activated for safety, and lap tray in place. Continue with rec D/C plan to SNF. JEAN PIERRE West/Ju
--- NOTE | 2019-08-13 07:30 | NUR ---
PHYSICAL THERAPY Patient seen this am for therapy visit and was sitting up in activity room Mimi chair upon therapist arrival. Patient identified by name / and reports no new c/o's. OT medical assistant internal medicine was present for observation only during COMMUNITY DEVELOPMENT MANAGER visit as patient transfers sit to stand MIN A. Patient ambulates with use of wh walker, CGA, 20'x 1 to bathroom, then additional 75'x 1, CGA, wh walker, demonstrating very slow wayne, several bouts of unsteady gait pattern, but slightly improved stride. Patient still needed several v/c's to safely navigate walker to avoid over reaching and returned to Mimi chair with mild fatigue. Patient transported via chair back to activity room and remained under [facility] staff Supervision awaiting breakfast. Will continue per POC as tolerated, total treatment time 15 minutes. Natan Barrera, COMMUNITY DEVELOPMENT MANAGER
[2019-08-13 07:36] VITALS: BP 135/73
--- NOTE | 2019-08-13 08:00 | NUR ---
Treatment plan meeting was held with Dr. Larkin, COBY Diaz, RN, AT, CAR WORKER-S and Post Office Manager. Plan for discharge Next week with return to [place].
--- NOTE | 2019-08-13 08:38 | NUR ---
PT AWAKE, ALERT, FED SELF BREAKFAST THIS AM. PLEASANT UPON INTERACTION WITH STAFF THIS AM. RESPS EASY AND EVEN ON ROOM AIR. NO DISTRESS NOTED. AND TED PMHNP- ON UNIT TO SEE PT AT THIS TIME. UPDATE GIVEN.
--- NOTE | 2019-08-13 10:07 | NUR ---
AND TEAM ON UNIT TO SEE PT AT THIS TIME.
--- NOTE | 2019-08-13 10:38 | NUR ---
ADELA CAMACHO [id number] Please refer to the physician's history and physical for past medical history, comorbid conditions, and allergies. Diagnosis: INTERMITTENT EXPOLSIVE DISORDER Salty Score: 18,AT RISK WOUND DESCRIPTIONS: This nurse to evaluate patient for skin impairment along with Vane DE JESUS. Upong trying to take patient to his room from the dining area patient raised right hand towards staff at this time. Patient return to dining area and skin impairments were not evaluate at this time due to aggressiveness. Surface the patient is resting on: [employer] SKIN PREVENTION RECOMMENDATION: 1. Pressure redistribution support surface as appropriate 2. Elevate heels 3. Remove boots/TEDS every shift and reapply 4. Head of bed 30 degrees as tolerated 5. Assess nutrition and hydration 6. Manage moisture 7. Avoid the use of containment devices while in bed 8. Use absorptive products on surfaces limit layers of linens on bed 9. Turn and reposition every 1-2 hours in bed and every 1 hour in chair as tolerated 10. Weight shifts every 15 minutes while up in chair 11. Offloading with pillows or device to keep heels elevated off bed 12. Monitor skin at least every shift 13. Inspect under medical devices twice a day WOUND TREATMENT RECOMMENDATIONS:
--- NOTE | 2019-08-13 14:00 | NUR ---
PT ASSISTED TO BATHROOM AT THIS TIME WITH HANDS ON ASSISTANCE OF STAFF X2. INCONTINENCE CARE PROVIDED, PT RESISTANT TO HANDS BUT NO AGGRESSIVE BEHAVIORS DISPLAYED AT THIS TIME. PT DID NOT ALLOW FULL SKIN ASSESSMENT AT THIS TIME BUT THIS RN WAS ABLE TO APPLY NYSTATIN CREAM TO GROIN EXCORIATION. AFTER TOLIETING PT AMBULATED IN HALLWAY FROM DINING ROOM TO THE WINDOW AT THE END OF THE HALLWAY. STAFF X2 AMBULATED WITH PT FOR SAFETY D/T UNSTEADY GAIT. 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 PT STATES "WOULD BE NICE TO HAVE A HIGH CHAIR HERE TO LOOK OUT THE WINDOW". PT SMILING AND INTERACTING APPROPRIATELY WITH STAFF. PT STOOD AT WINDOW FOR A WHILE THEN ASKED TO SIT DOWN. PT RETURNED TO CHAIR TO POSITION OF COMFORT, W/C CUSHION IN PLACE, PT TAKEN BACK TO DINING ROOM, SHOWN WINDOWS HERE HE CAN LOOK OUT WELL. PT WATCHING TV AT PRESENT WITH PEERS. GLASS OF ICE WATER PROVIDED. PT TAKING PO FLUIDS WELL.
--- NOTE | 2019-08-13 14:41 | NUR ---
P- CONFUSION. LABILE MOOD. EPISODICALLY COMBATIVE WITH HANDS ON CARE. I- ORIENTATION, MOOD AND BEHAVIOR ASSESSED. ASSESSED PT FOR SI/HI, INTENT OR PLAN. ASSESSED PT FOR S/S HALLUCINATIONS, PARANOIA AND/OR DELUSIONS. MEDICATIONS ADMINISTERED PER PHYSICIAN'S ORDERS. ASSISTANCE WITH ADL CARE PROVIDED NEEDED. ENCOURAGED PT TO ATTEND AND PARTICIPATE IN [facility] GROUPS AND ACTIVITIES. R- PT IS ALERT AND ORIENTED TO SELF, OTHERWISE CONFUSED. PT UNABLE TO STATE WHERE HE WAS, PT STATES "NOT SURE". PT STATES THE YEAR "18 SOMETHING". MOOD REMAINS LABILE, PT STATED THIS MORNING HE WAS "FEELING PRETTY GOOD" AND STATES "I THINK I'LL MAKE IT ANOTHER DAY". IRRITABILITY NOTED AT TIMES, WHEN THIS RN ADMINISTERED PT'S MORNING MEDICATIONS PT TOOK THEM IN HIS HAND AND STATED "YOU REALLY EXPECT ME TO TAKE ALL THESE?" EDUCATION AND ENCOURAGEMENT PROVIDED. PT DID TAKE ALL MEDICATIONS WITHOUT DIFFICULTY. APPROX 10AM SENIOR DOT NET DEVELOPER ON UNIT FOR SKIN ASSESSMENT, PT REFUSED, BECAME PHYSICALLY THREATENING, SHAKING FIST AT STAFF. PT DENIES SI/HI, INTENT OR PLAN. PT DENIES HALLUCINATIONS, NO RESPONSE TO INTERNAL STIMULI NOTED. NO PARANOIA OR DELUSIONS NOTED. THIS AFTERNOON PT WAS RESISTANT TO HANDS ON CARE WITH TOLIETING BUT DID NOT DISPLAY ANY AGGRESSIVE OR THREATENING BEHAVIORS. PT FEEDS SELF, DISPLAYS GOOD APPETITE, TAKING PO FLUIDS WITHOUT DIFFICULTY. NO DISTRESS NOTED. P- PLAN TO CONTINUE CURRENT TREATMENT; CONTINUE TO MONITOR MOOD AND BEHAVIORS, PROVIDE APPROPPRIATE REORIENTATION, REDIRECTION AND 1:1 NEEDED. CONTINUE TO ENCOURAGE MEDICATION COMPLIANCE WELL GROUP ATTENDANCE AND PARTICIPATION.
--- NOTE | 2019-08-13 15:32 | NUR ---
OCCUPATIONAL THERAPY CO-SIGN I approve of the Occupational Therapy notes written above. Bea Riley, OTR/L
--- NOTE | 2019-08-13 18:40 | NUR ---
SHIFT CHART CHECK COMPLETED.
[2019-08-13 19:45] VITALS: BP 145/78
--- NOTE | 2019-08-13 22:54 | NUR ---
P-CONFUSION, COMBATIVE WITH HOC. I-PRESENT REALITY AND REORIENT. PROVIDE 1:1 WITH THERAPEUTIC INTERVENTIONS. PROVIDE SIMPLE STEP BY STEP INSTRUCTIONS DURING HOC TO REDUCE ANXIETY/AGITATION. ENCOURAGE MEDICATION COMPLIANCE AND EDUCATE. MONITOR SLEEP. R-PT ALERT TO SELF, CONFUSED. MOOD REMAINS LABILE. PT CALM UNTIL APPROACHED IN REGARDS TO HOC OR SHOWER ASSISTANCE, BECOMES COMBATIVE. PT BALLING UP FISTS, ATTEMPTING TO BITE, OR THROWING WASH RAGS. PT UNRECEPTIVE TO REDIRECTION OR THERAPEUTIC INTERVENTIONS STATING, "IM CLEAN LEAVE ME ALONE" AND "THEY TRIED TO GET ME TO CHANGE MY SHIRT 5 MONTHS AGO AND I REFUSED TO SHOWER OR SHAVE EVER SINCE". PT MEDICATION COMPLIANT EXCEPT FOR HS DOSE OF NYSTATIN CREAM, UNABLE TO EDUCATE DUE TO COGNITION. PT DENIES SI/HI, HALLUCINATIONS, OR PAIN. NO PARANOIA/DELUSIONS NOTED. PT ASSISTED TO BED WITH X2 WITH ENCOURAGEMENT. PT RESTING QUIETLY AT THIS TIME, RESPIRATIONS EASY AND REGULAR, NO SIGNS OR SYMPTOMS OF DISTRESS NOTED. P-CONTINUE TO MONITOR MOODS AND BEHAVIORS. PROVIDE 1:1 WITH THERAPEUTIC INTERVENTIONS. PROVIDE SUPPORT WITH SIMPLE INSTRUCTION DURING HOC. ENCOURAGE MEDICATION COMPLIANCE. MAINTAIN Q 15 MIN CHECKS.
--- NOTE | 2019-08-14 00:46 | NUR ---
24 HOUR CHART CHECK COMPLETED.
--- NOTE | 2019-08-14 06:08 | NUR ---
PATIENT OBSERVED ON Q 15 MIN CHECKS TO HAVE SLEPT APPROX 7 HOURS WITH NO AWAKENINGS OR SIGNS AND SYMPTOMS OF DISTRESS NOTED.
--- NOTE | 2019-08-14 07:05 | NUR ---
PT INCONTINENT X1, COMPLIANT WITH HOC WITHOUT DIFFICULTY, AM DOSE OF NYSTATIN APPLIED. SMALL BLANCHABLE REDDENED AREA NOTED TO LEFT GLUTEAL, NO OPEN AREAS OBSERVED.
--- NOTE | 2019-08-14 07:10 | NUR ---
PHYSICAL THERAPY Patient seen this am for therapy visit and was just awakening supine in bed upon therapist arrival. Patient identified by name / and reports sleeping very well last night. OT training and development assistant was present for observation only this morning as patient transfers supine to sit EOB with MOD A x 2. Patient needed a minute or so to collect himself then performed sit to stand transfer MIN A x 2, use of walker standing support. Patient ambulated 15'x 2 to bathroom, walker, CGA, demonstrating bouts of unsteady gait pattern and increased confusion in tight bathroom spaces advancing walker. Patient returned to supine in bed per nursing request to be seen by wound Nurse. Patient remained in bed with bed side rails elevated for safety and bed alarm activated. Will continue per POC as tolerated, total treatment time 14 minutes. Natan Barrera, SHEET CUTTING OPERATOR
--- NOTE | 2019-08-14 07:15 | NUR ---
OT NOTE Pt was seen this A.M. 1:1 for 20 mintue OT session. Upon arrival pt was supine in bed. Pt identified by name and and had no complaints at this time. Pt transferred supine to sit EOB with modA X 2 for assist with both UB and LB. While sitting EOB pt donned pants with modA for assist with donning his feet and diabetes educator socks, pt was then able to stand with Santos X 2 while pulling up from knee level. Pt then completed sit to stand from bed level with Santos X 2 and use of w/w for UE support. Functional mobility was then completed into the bathroom with CGA and use of w/w for UE support. Pt transferred on/off standard commode with Santos due to low surface. Pt then stood sink side while washing his hands and face with CGA, throughout pt had multiple LOB that occured backwards while standing without UE support that required santos to correct. Functional mobility was then completed back to bed per nursing request due to wound care assesment. Pt then transferred back into bed sit to supine with modA and was repositioned with maxA x 2. There he was left with tray table in place and bed alarm activated for safety. Continue with rec D/C plan to SNF. JEAN PIERRE West/Ju
[2019-08-14 08:00] VITALS: BP 112/66
--- NOTE | 2019-08-14 08:00 | NUR ---
Patient resting quietly with no c/o discomfort. Respirations easy and regular. Vital signs stable. No overt distress. DOV BRENNAN
--- NOTE | 2019-08-14 08:00 | NUR ---
Treatment Plan meeting was held with Dr. Larkin, RN, AT and Lighting Technician. Plan for discharge next week with return to [facility].
--- NOTE | 2019-08-14 10:01 | NUR ---
ADELA CAMACHO [id number] Please refer to the physician's history and physical for past medical history, comorbid conditions, and allergies. Diagnosis: INTERMITTENT EXPOLSIVE DISORDER Salty Score: 18,AT RISK WOUND DESCRIPTIONS: Wound Number: 1 periarea/groin. Light red areas noted. No open areas at time of assessment. Musty odor noted at time of assessment. Patient was coopertive and pleasant at time of assessment. Wound Number: 2 Location of the wound: right lower extremity Thickness: Partial Size: 0.3cm x 0.5cm x 0.1cm Tunneling: none Undermining: none Sinus Tract: none Presence of Exudate: Serous Amount: Light Color: Red Odor: None Periwound Skin Appearance: Erythema with intact scabbed areas Wound edges: approximated Pain (associated with wound): none at time of assessment Surface the patient is resting on: Proform SKIN PREVENTION RECOMMENDATION: 1. Pressure redistribution support surface as appropriate 2. Elevate heels 3. Remove boots/TEDS every shift and reapply 4. Head of bed 30 degrees as tolerated 5. Assess nutrition and hydration 6. Manage moisture 7. Avoid the use of containment devices while in bed 8. Use absorptive products on surfaces limit layers of linens on bed 9. Turn and reposition every 1-2 hours in bed and every 1 hour in chair as tolerated 10. Weight shifts every 15 minutes while up in chair 11. Offloading with pillows or device to keep heels elevated off bed 12. Monitor skin at least every shift 13. Inspect under medical devices twice a day WOUND TREATMENT RECOMMENDATIONS: Continue nystatin cream to groin. Continue dressing change orders to buttocks. Continue Partial thickness guidelines to RLE
--- NOTE | 2019-08-14 11:41 | NUR ---
AM GROUP PT ATTENDED MORNING GROUP THERAPY AND PARTICIPATED BY READING THE NEWSPAPER, HAVING A SNACK AND SOCIALIZING WITH THIS ROUGHER MACHINE OPERATOR. PT OBVIOUSLY HAS MEMORY GAPS AND WOULD SAY, "IT'S HARD TO REMEMBER" PT WAS PLEASANT AND ENGAGED. PT EXHIBITED NO AGITATION OR AGGRESSION WHILE IN GROUP
--- NOTE | 2019-08-14 13:31 | NUR ---
pt has been calm, cooperative t/o this shift. medication compliant. pt cooperative with HOC without difficulty. pt does continue to refuse shower at this time. pt encouraged and reapproached, ineffective. will continue to encourage pt to shower and particpate in hygiene care. will monitor q15 min per policy for safety.
--- NOTE | 2019-08-14 15:41 | NUR ---
PM GROUP PT ATTENDED AFTERNOON GROUP THERAPY AND PARTICIPATED BY WATCHING TV AND NAPPING. PT WAS QUIET AND CONTENT. PT WOULD ATTEMPT CONVERSATION BUT SPEECH IS WORD SALAD. PT EXHIBITED NO AGITATION OR AGGRESSION WHILE IN GROUP.
[2019-08-14 19:52] VITALS: BP 126/52
--- NOTE | 2019-08-15 00:53 | NUR ---
24 HR chart check completed.
--- NOTE | 2019-08-15 02:32 | NUR ---
P-CONFUSION, IRRITABLE WITH HANDS ON CARE I-ASSESS ORIENTATION, PROVIDE REASSURANCE, ADMINISTER MEDS, PROVIDE HOC, MONITOR SLEEP R-PT ALERT TO PERSON ONLY. SHORT/SENIOR LIVING MEMORY DEFICITS, HAS BEEM PLEASANTLY CONFUSED EXCEPT FOR HANDS ON CARE, PT BECOMES IRRITABLE WHEN BEING ASSISTED TO GET INTO BED & CLOTHING & DIAPER CHANGE. INCONTINENT OF URINE. MUCH REASSURANCE PROVIDED. ATE SOME OF HIS SNACK. HS BEDSIDE GLUCOSE 178. COMPLIANT WITH MEDICATIONS TAKING THEM WHOLE & ON A SPOON. HAS SAT IN A PAMELLA CHAIR WATCHING TV. P-CONTINUE TO MONITOR & PROVIDE PHYSICAL ASSISTANCE & EMOTIONAL SUPPORT NEEDED.
--- NOTE | 2019-08-15 04:30 | NUR ---
PT AWAKE AT THIS TIME. INCONTINENT OF URINE. MORE CO-OPERATIVE WITH HANDS ON CARE. HAS ONLY SLEPT FOR 2 HOURS.
--- NOTE | 2019-08-15 06:52 | NUR ---
AM BEDSIDE GLUCOSE 119
--- NOTE | 2019-08-15 07:15 | NUR ---
PHYSICAL THERAPY Patient seen this am for therapy visit and was supine in bed upon therapist arrival. Patient identified by name / and reports no c/o's pain at this time. [facility] staff member was present for observation only during MINE CAR DISPATCHER visit this morning as patient transfered supine to sit EOB with MOD A x 2. Patient demonstrated increased trunck Rigidity with LE Extensor tone and needed several v/c's to sit up straight on EOB. Patient also presented with mild confusion while transfering sit to stand MIN A and ambulating with use of wh walker, MIN A. Patient demonstrated POOR wh walker safety, R side deviation, decreased stride and unsteady gait pattern, 50'x 1. Patient received multiple v/c's to improve safe gait pattern, but with very little carryover this session. Patient returned to Mimi chair in hallway and tranported to activity room awaiting breakfast with lap tray, body alarm, under [facility] staff Supervision. Will continue per POC as tolerated, total treatment time 14 minutes. Natan Barrera, MINE CAR DISPATCHER
[2019-08-15 07:56] VITALS: BP 140/77
--- NOTE | 2019-08-15 08:49 | NUR ---
PT AWAKE, ALERT, FED SELF BREAKFAST THIS AM. RESPS EASY AND EVEN ON ROOM AIR. NO AGGRESSIVE BEHAVIORS DISPLAYED THIS MORNING. AND TED [facility]-BC ON UNIT TO SEE PT AT THIS TIME. UPDATE GIVEN.
--- NOTE | 2019-08-15 10:14 | NUR ---
AND TEAM ON UNIT TO SEE PT AT THIS TIME.
--- NOTE | 2019-08-15 11:39 | NUR ---
AM GROUP PT WAS PRESENT FOR MORNING GROUP THERAPY RECLINED IN A PAMELLA CHAIR WITH THE TRAY ON SLEEPING. PT SLEPT UNTIL THE LAST 10 MINUTES OF GROUP AND BECAME AGITATED WITH THE TRAY. PT WAS ASSISTED TO SIT UP IN THE CHAIR WITHOUT THE TRAY. PT WAS CONTENT TO WATCH TV AND CONVERSE WITH THIS ROTARY DERRICK OPERATOR. PT EXHIBITED NO AGITATION OR AGGRESSION WHILE IN GROUP
--- NOTE | 2019-08-15 13:45 | NUR ---
INCONTINENCE CARE PROVIDED AT THIS TIME. PT IRRITABLE AND RESISTANT TO HANDS ON CARE. MILDLY COMBATIVE BUT ABLE TO BE VERBALLY CALMED/REDIRECTED. PT CONTINUES TO REFUSE SHOWER DESPITE MULTIPLE ATTEMPTS, ENCOURAGEMENT AND EDUCATION. PARTIAL BED BATH COMPLETED MUCH PT WOULD ALLOW. NYSTATIN CREAM APPLIED TO GROIN. ATTEMPTED TO ALLOW PT TO LAY IN BED AND REST FOR AFTERNOON NAP. PT GOT OOB UNASSISTED A SHORT TIME LATER, STAFF ASSISTED PT IN DONNING PANTS. PT THEN AMBULATED UP AND DOWN HALLWAY WITH STAFF ON EITHER SIDE OF PT FOR SAFETY D/T OCCASIONAL UNSTEADY GAIT. PT THEN STATES "OK. I'M DONE". PT ASSISTED BACK TO CHAIR TO POSITION OF COMFORT AND TAKEN TO DINING ROOM WITH PEERS AND U STAFF MEMBER. BODY ALARM IN PLACE.
--- NOTE | 2019-08-15 15:20 | NUR ---
P- CONFUSION. MEMORY GAPS. IRRITABLE AT TIMES, EPISODICALLY COMBATIVE WITH HANDS ON CARE. I- ORIENTATION, MOOD AND BEHAVIOR ASSESSED. ASSESSED PT FOR SI/HI, INTENT OR PLAN. ASSESSED PT FOR S/S HALLUCINATIONS, PARANOIA AND/OR DELUSIONS. MEDICATIONS ADMINISTERED PER PHYSICIAN'S ORDERS. ASSISTANCE WITH ADL CARE PROVIDED NEEDED. ENCOURAGED PT TO ATTEND AND PARTICIPATE IN [facility] GROUPS AND ACTIVITIES. R- PT IS ALERT AND ORIENTED TO NAME ONLY. OTHERWISE CONFUSED. RESPS EASY AND EVEN ON ROOM AIR. MOOD BECOMES IRRITABLE AT TIMES WHEN STAFF ATTEMPTS TO ASSIST PT WITH HANDS ON CARE OR TALK TO PT ABOUT GETTING A SHOWER. AFFECT FLAT. SPEECH IS SOFT, NONSENSICAL AT TIMES. PT IS ABLE TO ANSWER SIMPLE QUESTIONS. PT DENIES SI/HI, INTENT OR PLAN. PT DENIES HALLUCINATIONS, NO RESPONSE TO INTERNAL STIMULI NOTED. NO PARANOIA OR DELUSIONS NOTED. PT IS MED COMPLIANT WITHOUT DIFFICULTY. CONTINUES TO BE COMBATIVE AT TIMES WITH HANDS ON CARE. MORE EASILY REDIRECTABLE. PT CONTINUES TO REFUSE SHOWER DESPITE MULTIPLE ATTEMPTS BY DIFFERENT STAFF. NO DISTRESS NOTED. P- PLAN TO CONTINUE CURRENT TREATMENT, CONTINUE TO MONITOR MOOD AND BEHAVIORS, PROVIDE APPROPRIATE REORIENTATION, REDIRECTION AND 1:1 NEEDED. CONTINUE TO ENCOURAGE MED COMPLIANCE WELL GROUP ATTENDANCE AND PARTICIPATION.
--- NOTE | 2019-08-15 15:39 | NUR ---
PHYSICAL THERAPY CO-SIGN I approve of the Physical Therapy notes written above. Nathalie Lion PT
--- NOTE | 2019-08-15 16:34 | NUR ---
INVEGA SUSTENNA 156MG IM GIVEN AT THIS TIME TO LEFT DELTOID PER PHYSICIAN'S ORDERS. PT TOLERATED WELL.
--- NOTE | 2019-08-15 17:20 | NUR ---
PT WITH NO DOCUMENTED BM X3 DAYS. +BSX4. ABDOMEN SOFT NONTENDER. PT DENIES PAIN/DISCOMFORT. PRN MILK OF MAGNESIA 30ML PO GIVEN AT THIS TIME FOR CONSTIPATION. WILL MONITOR FOR EFFECTIVENESS.
--- NOTE | 2019-08-15 18:05 | NUR ---
SHIFT CHART CHECK COMPLETED.
[2019-08-15 19:35] VITALS: BP 138/72
--- NOTE | 2019-08-15 20:45 | NUR ---
24 HR chart check completed.
--- NOTE | 2019-08-15 21:46 | NUR ---
P-CONFUSION, MILDLY IRRITABLE WITH HANDS ON CARE I-ASSESS ORIENTATION, PROVIDE REASSURANCE, ADMINISTER MEDS, PROVIDE HOC, MONITOR SLEEP R-PT ALERT TO PERSON ONLY. SHORT/PENITENTIARY MEMORY DEFICITS. PLEASANTLY CONFUSED. LESS IRRITABLE WITH HANDS ON CARE & MORE CO-OPERATIVE. MOM GIVEN EARLIER HAS BEEN EFFECTIVE & PT WAS INCONTINENT OF MEDIUM BM & URINE. ATE SNACK. HS BEDSIDE GLUCOSE 170. COMPLIANT WITH MEDICATIONS TAKING THEM WHOLE & ON A SPOON. SPENT LEISURE TIME SITIING IN THE DINING ROOM IN A PAMELLA CHAIR WATCHING TV. 3 STAFF ASSISTS TO TRANSFER TO BED & ASSIST WITH HYGIENE. P-CONTINUE TO MONITOR & PROVIDE PHYSICAL ASSISTANCE & EMOTIONAL SUPPORT NEEDED.
--- NOTE | 2019-08-16 04:40 | NUR ---
PT AWAKE AT THIS TIME. INCONTINENT OF VERY LARGE AMOUNT OF URINE. PROVIDED HYGIENE & PARTIAL BED BATH WITH 3 STAFF ASSISTS.
--- NOTE | 2019-08-16 06:46 | NUR ---
AM BEDSIDE GLUCOSE 135
--- NOTE | 2019-08-16 07:00 | NUR ---
[facility]. UPDATE GIVEN.
[2019-08-16 08:00] VITALS: BP 128/70
--- NOTE | 2019-08-16 10:33 | NUR ---
AND ON UNIT TO SEE PT AT THIS TIME.
--- NOTE | 2019-08-16 11:40 | NUR ---
P- PLEASANTLY CONFUSED THIS MORNING. RESISTANT TO HANDS ON CARE BUT NO PHYSICALLY AGGRESSIVE BEHAVIORS HAVE BEEN DISPLAYED OF THIS TIME IN THE SHIFT. PT NAPS INTERMITTENTLY, EASILY AROUSABLE VIA VERBAL/TACTILE STIMULI. PT CONTINUES TO REFUSE SHOWER DESPITE STAFF ENCOURAGEMENT. I- ORIENTATION, MOOD AND BEHAVIOR ASSESSED. ASSESSED PT FOR SI/HI, INTENT OR PLAN. ASSESSED PT FOR S/S HALLUCINATIONS, PARANOIA AND/OR DELUSIONS. MEDICATIONS ADMINISTERED PER PHYSICIAN'S ORDERS. ASSISTANCE WITH ADL CARE PROVIDED NEEDED. ENCOURAGED PT TO ATTEND AND PARTICIPATE IN [facility] GROUPS AND ACTIVITIES. R- PT IS ALERT AND ORIENTED TO SELF ONLY, OTHERWISE PT HAS BEEN PLEASANTLY CONFUSED THIS MORNING. ST/LT MEMORY GAPS NOTED. RESPS EASY AND EVEN ON ROOM AIR. PT HAS ASKED THIS NURSE "WHAT TIME DO I HAVE TO GO DOWN THERE?" A FEW TIMES THIS MORNING, PT REMINDED HE IS IN THE HOSPITAL AND DOESN'T HAVE TO GO ANYWHERE TODAY. PT STATES "OH, OK. THAT'S GOOD". MOOD IS STABLE, PT BECOMES SLIGHTLY IRRITABLE AND IS RESISTANT TO ASSISTANCE FROM STAFF FOR ADL CARE DESPITE PT BEING UNABLE TO COMPLETE ADL CARE TASKS INDEPENDENTLY AND SAFELY. PT AMBULATED FROM PT'S ROOM TO THE DINING ROOM WITH STAFF STANDBY ASSIST X2 FOR SAFETY D/T UNSTEADY GAIT. PT BEARS WEIGHT FULLY ON HIS OWN. PT DENIES SI/HI, INTENT OR PLAN. PT DENIES HALLUCINATIONS, NO RESPONSE TO INTERNAL STIMULI NOTED. NO PARANOIA OR DELUSIONS NOTED. PT IS MED COMPLIANT THIS AM WITHOUT DIFFICULTY. PT CONTINUES TO REFUSE SHOWER OF THIS TIME DESPITE MULTIPLE ATTEMPTS AND STAFF ENCOURAGEMENT. PT STATES "HOW WOULD YOU KNOW I HAVEN'T HAD ONE?" EDUCATION PROVIDED. PT CONTINUES TO REFUSE. PARTIAL BED BATH GIVEN BY REHEATER. WILL CONTINUE TO OFFER SHOWER. PT ALLOWED THIS RN TO CHANGE DRESSING TO RLE AND ALLOWED LAB DRAW FOR NH3 LEVEL WITHOUT DIFFICULTY. NO DISTRESS NOTED. P- PLAN TO CONTINUE CURRENT TREATMENT, CONTINUE TO MONITOR MOOD AND BEHAVIORS, PROVIDE APPROPRIATE REORIENTATION, REDIRECTION AND 1:1 NEEDED. CONTINUE TO ENCOURAGE MEDICATION COMPLIANCE WELL GROUP ATTENDANCE AND PARTICIPATION.
--- NOTE | 2019-08-16 11:57 | NUR ---
AM GROUP/MALAWIAN NEW YEAR PT IN ATTENDANCE BUT UNABLE TO PARTICIPATE AT THIS TIME DUE TO SLEEPING. PT DID NOT WAKE DURING GROUP, BUT WILL OCNTINUE TO ATTEND AN DBE ENCOURAGED TO PARTICIPATE TO BEST OF PT ABILITY IN FUTURE GROUP SESSIONS.
--- NOTE | 2019-08-16 13:39 | NUR ---
ATTEMPTED TO TOILET PT AT THIS TIME IN ATTEMPT TO OBTAIN URINE SPECIMEN FOR URINALYSIS. PT REFUSING, BECOMING PHYSICALLY COMBATIVE WITH STAFF, ATTEMPTING TO HIT THIS RN, 2ND RN AND MENTAL HEALTH WORKER. PT STATES "I'M NOT IN THE HOSPITAL!" UNABLE TO REORIENT AT THIS TIME. PT BECOMING INCREASINGLY AGGRESSIVE UPON ATTEMPTS TO REDIRECT OR REORIENT. PT STATES "GET THE HELL OUT OF HERE, ALL OF YOU, AND NEVER COME BACK!". WILL REATTEMPT ONCE PT CALMS.
--- NOTE | 2019-08-16 15:48 | NUR ---
PM GROUP/ART/MUSIC PT IN ATTENDANCE BUT CHOOSES NOT TO PARTICIPATE DUE TO BECOMING AGITATED OVER GOING TO THE RESTROOM. PT STATED HE WANTED TO USE THE RESTROOM BUT WHEN [facility] ATTEPTED TO TAKE PT, PT BECAME AGITATAED. PT TOILETED, BUT DURING GROUP EXPRESSED AGITATION BY STATING "NO, I DON'T WANT TO DO ANYTHING" PT SLEEPING ON AND OFF THROUGHOUT GROUP AT THIS TIME. PT WILL CONTINUE TO BE ENCOURAGED TO ATTEND AN DPARTICIPATE IN FUTURE GROUP SESSIOSN TO BEST OF PT ABILITY.
--- NOTE | 2019-08-16 17:43 | NUR ---
SHIFT CHART CHECK COMPLETED.
--- NOTE | 2019-08-16 19:36 | NUR ---
urinalysis obtained at this time via straight cath. labeled and sent to lab.
[2019-08-16 19:43] LABS: BILIRUBIN NEGATIVE (NEGATIVE); BLOOD NEGATIVE (NEGATIVE); CLARITY CLEAR (CLEAR); COLOR YELLOW (YELLOW); GLUCOSE NEGATIVE (NEGATIVE); KETONE NEGATIVE (NEGATIVE); LEUKO ESTERASE NEGATIVE (NEGATIVE); NITRITE NEGATIVE (NEGATIVE); PH 7.5 (5.0-9.0); SPECIFIC GRAVITY 1.005 (1.005-1.030); UROBILINOGEN 0.2 E.U./dl (0.2-1.0)
[2019-08-16 19:48] LABS: EPITHELIAL CELLS 0-2; RBC 0-2 rbc/hpf (0-2); WBC 0-2 wbc/hpf (0-5)
[2019-08-16 20:00] VITALS: BP 125/71
--- NOTE | 2019-08-16 22:00 | NUR ---
REMAINS UP IN CHAIR. PLEASENT AND INTERACTIVE. NO SEXUAL OVERTONES NOTED AT THIS TIME. LAUGHING WITH STAFF. MEDICATION COMPLIANT. WANTS TO GO TO QUIET ROOM BECAUSE HE IS NOT TIRED AND DOESN'T WANT TO GO TO BED. WILL MONITOR FOR CHANGES IN BEHAVIOR/MOOD. MONITOR Q 15 MINUTES AND PRN FOR SAFETY
--- NOTE | 2019-08-17 01:08 | NUR ---
RESTING QUIET IN HIS ROOM. ASSIST OF 2 NEEDED WHEN WE PUT HIM IN BED. PLEASENT AND INTERACTIVE
--- NOTE | 2019-08-17 06:09 | NUR ---
SLEPT INTERMITTENTLY PAST 0200AM
[2019-08-17 07:59] VITALS: BP 115/82
--- NOTE | 2019-08-17 08:33 | NUR ---
PT AWAKE, ALERT. RESPS EASY AND EVEN ON ROOM AIR. PLEASANT THIS AM. TED [facility]- ON UNIT TO SEE PT AT THIS TIME. UPDATE GIVEN.
--- NOTE | 2019-08-17 08:47 | NUR ---
PT C/O TOOTH PAIN. AND ON UNIT AND ASSESSED. RECOMMENDS PT FOLLOW UP WITH DENTIST AFTER DISCHARGE.
--- NOTE | 2019-08-17 17:20 | NUR ---
P- PLEASANTLY CONFUSED. PT COMPLIANT WITH HANDS ON CARE TODAY, ALLOWED STAFF TO SHOWER, COMPLETE MOUTH CARE AND SHAVE PT WITHOUT DIFFICULTY. NO AGGRESSIVE BEHAVIORS DISPLAYED THIS DATE. I- ORIENTATION, MOOD AND BEHAVIORS ASSESSED. ASSESSED PT FOR SI/HI, INTENT OR PLAN. ASSESSED PT FOR S/S HALLUCINATIONS, PARANOIA AND/OR DELUSIONS. MEDICATIONS ADMINISTERED PER PHYSICIAN'S ORDERS. ASSISTANCE WITH ADL CARE PROVIDED NEEDED. ENCOURAGED PT TO ATTEND AND PARTICIPATE IN [facility] GROUPS AND ACTIVITIES. R- PT IS ALERT AND ORIENTED TO PERSON ONLY, OTHERWISE PLEASANTLY CONFUSED. MEMORY GAPS NOTED. RESPS EASY AND EVEN ON ROOM AIR. MOOD IS STABLE THIS SHIFT, AFFECT BROAD RANGE. PT SMILES AND JOKES APPROPRIATELY WITH STAFF AT TIMES. SPEECH IS COHERENT, ABLE TO ANSWER SIMPLE QUESTIONS AND MAKES NEEDS KNOWN. PT DENIES SI/HI, INTENT OR PLAN. PT DENIES HALLUCINATIONS, NO RESPONSE TO INTERNAL STIMULI NOTED. PT COMPLIANT WITH HANDS ON CARE THIS DATE, PT ALLOWED STAFF TO ASSIST HIM WITH COMPLETE SHOWER, SHAVE AND MOUTH CARE WITHOUT DIFFICULTY. PT REFUSED AM MEDS TODAY D/T DROWSINESS THIS MORNING. NO DISTRESS NOTED. P- PLAN TO CONTINUE CURRENT TREATMENT, CONTINUE TO MONITOR MOOD AND BEHAVIORS, PROVIDE APPROPRIATE REORIENTATION, REDIRECTION AND 1:1 NEEDED. CONTINUE TO ENCOURAGE MEDICATION COMPLIANCE WELL GROUP ATTENDANCE AND PARTICIPATION.
[2019-08-17 20:00] VITALS: BP 134/66
--- NOTE | 2019-08-17 21:00 | NUR ---
MORE INTERACTIVE. MOVING SELF IN CHAIR. MEDICATION COMPLIANT. NOT INTERESTED IN 1:1. ready FOR BED. BILAT LOWER LEG EDEMA WITH RED CAST REMAINS UNCHANGED. PERIFERAL PULSES PRENT. WILL CONTINUE TO MONITOR FOR CHANGES IN MOOD/BEHAVIOR MONITOR Q 15 MINUTES AND PRN FOR SAFETY
--- NOTE | 2019-08-18 00:43 | NUR ---
24 HR chart check completed.
--- NOTE | 2019-08-18 01:25 | NUR ---
SATURATED BED IN URINE. WHILE ATTEMPTING TO CHANGE HIM HE TRIED TO HEAD BUTT, BITE AND PUNCH STAFF. UNABLE TO REDIRECT. PLACED IN PAMELLA CHAIR AND BROUGHT TO DININGROOM FOR CLOSER MOONITORING
--- NOTE | 2019-08-18 03:42 | NUR ---
has been resting since being brought to diningroom
--- NOTE | 2019-08-18 06:10 | NUR ---
SLEPT A BROKEN 5 HOURS SLEEP
--- NOTE | 2019-08-18 07:20 | NUR ---
OT NOTE Pt was seen this A.M. 1:1 for 20 minute OT session with LAND ACQUISITION MANAGER and nursing staff present for observation only. Upon arrival pt was sitting upright in the lena chair in the dining mcbride. Pt identified by name and and had no complaints at this time. Pt was taken out into the hallway where he completed sit to stand from chair level with Yolanda and use of w/w for UE support. Functional mobility was then completed to the bathroom with CGA and use of w/w with mod verbal prompts for staying within the walker and correcting R lateral lean. Pt then stood sink side while washing his hands with Yolanda for assist with both sequencing and correcting R lateral lean. While stepping backwards pt had LOB that required Yolanda to correct. Functional mobility was then completed back to the lena chair with CGA and use of w/w. There pt was left sitting semi reclined in the lena chair in the dining mcbride with lap tray in place, body alarm activated for safety, and under U staff supervision. Continue with rec D/C plan to SNF. JEAN PIERRE West/Ju
[2019-08-18 07:39] VITALS: BP 142/70
--- NOTE | 2019-08-18 08:00 | NUR ---
Treatment Plan meeting was held with Dr. Larkin, COBY Diaz, RN, AT, CERTIFIED SURGICAL ASSISTANT-S and Help Desk Assistant in attendance. Plan for discharge Sunday. Pt. will return to [facility].
--- NOTE | 2019-08-18 11:52 | NUR ---
NO AM GROUP THERAPY DUE TO NEW PT ASSESSMENTS
--- NOTE | 2019-08-18 11:56 | NUR ---
PHYSICAL THERAPY Patient seen this am for therapy visit and was sitting semi reclined in activity room Mimi chair upon therapist arrival. Patient identified by name / and reports no new c/o's at this time. OT pharmacy assistant was present for observation only during MEAL ROOM HAND visit and patient transfers sit to stand with MIN A x 1. Patient was pleasant this morning ambulating with use of wh walker, 100'x 1, CGA, demonstrating mild R side deviation, decreased stride, and slow wayne. Patient unsteady step sequence during 180 degree turns and needed v/c to improve walker safety. Patient also demonstrated mild fatigue needing brief seated rest break before additional gait 25'x 2 to bathroom, wh walker, CGA x 1. Patient returned to Mimi chair in activity room and remained at table with body alarm under U staff Supervision. Will continue per POC as tolerated, total treatment time 17 minutes. Natan Barrera, MEAL ROOM HAND
--- NOTE | 2019-08-18 12:14 | NUR ---
Left Message for [facility] Consultant at [place] [phone] to discuss discharge plans for Sunday. Clinical Updates faxed to Facility [phone]
--- NOTE | 2019-08-18 15:41 | NUR ---
PM GROUP PT WAS PRESENT FOR AFTERNOON GROUP THERAPY AND SLEPT RECLINED IN A PAMELLA CHAIR FOR THE ENTIRE GROUP.
--- NOTE | 2019-08-18 19:37 | NUR ---
PATIENT IS ALERT TO SELF WITH CONFUSION; ABLE TO VOICE NEEDS. MOOD IS HOPELESS/HELPLESS. FLAT AFFECT. LONG/SHORT TERM MEMORY DEFICITS. NO VOICED STATEMENTS OF HI/SI OR PAIN. MEDICATION COMPLAINTS. Q 15 MINUTES SAFETY CHECKS. 1-2 PERSON ASSIST WITH ACTIVITIES OF DAILY LIVING, INCONTINENT OF BOWEL AND BLADDER. SET UP FOR MEALS, INTAKES ARE FAIR. NO AGGRESSION OBSERVED. CONTINUE TO MONITOR FOR AGGRESSION; PROVIDE ONE ON ONE AND REDIRECTION NEEDED.
[2019-08-18 19:51] VITALS: BP 138/87
--- NOTE | 2019-08-18 20:45 | NUR ---
EVENING/LEISURE SKILLS PT IN ATTENDANCE AT THIS TIME OBSERVING PEERS. PT OFFERED ACTIVITY BUT CHOSE NOT TO PARTICIPATE. PT ATTEMPTED TO GET OUT OF CHAIR TO GO HOME. PT REDIRECTED.
--- NOTE | 2019-08-18 21:25 | NUR ---
Patient alert to self only with confusion noted. Mood calm and cooperative at this time. Memory deficits noted. Patient denies any hallucinations,SI/HI, or delusions. No overt s/s of responding to internal stimuli noted at this time. Patient compliant with HS medications without any difficulty. Redirected/reoriented when needed/appropriate but unreceptive with this at times. Patient in gerichair in quiet room across from nurses' desk to observe moods/behaviors. Attempted to Provide 1:1 for emotional support and therapeutic communication but patient refused. Plan to continue to encourage medication compliance. Continue to redirect/reorient when needed/apppropriate and continue to provide emotional support. Will continue to monitor moods/behaviors. Q 15 minute safety checks continued and maintained. See [facility] flowsheet for further documentation.
--- NOTE | 2019-08-19 07:20 | NUR ---
PHYSICAL THERAPY Patient seen this am for therapy visit and was just awakening supine in bed upon therapist arrival. Patient identified by name / and needed a few minutes to fully awaken prior to transfering supine to sit EOB with MIKKI Quiroz. OT reference assistant was present for observation only this morning as patient presented with bouts of increased confusion. Patient needed several v/c's to focus on task in completing all therapy this session, performing sit to stand transfer CGA. Patient ambulated with use of wh walker, 15'x 1 to bathroom, CGA and demonstrated LOB x 1 while turning towards toilet. Patient needed therapist assist to correct and ambulated additional 50'x 1, wh walker, CGA, demonstrating very slow, cautious gait pattern. Patient fatigues quickly and returned to Mimi chair in activity room with lap tray / body alarm. Patient remained in activity room under [facility] staff Supervision awaiting breakfast. Will continue per POC as tolerated, total treatment time 16 minutes. Natan Barrera, SUPERVISOR [employer]
--- NOTE | 2019-08-19 07:25 | NUR ---
OT NOTE Pt was seen this A.M. 1:1 for 25 minute OT session with RECEIVING DISTRIBUTION STATION OPERATOR and nursing staff present for observation only. Upon arrival pt was supine in bed. Pt identified by name and and had no complaints at this time. Pt transferred supine to sit EOB with SBA. Sit to stand completed from bed level with Yolanda and use of w/w for UE support. Functional mobility was then completed into the bathroom with Yolanda and use of w/w. While sitting pt donned pants with Yolanda. Pt transferred on and off standard commode with Yolanda and use of grab bar for UE support. Pt had LOB upon inital rise backwards that required modA to correct. Pt then stood sink side while washing his hands and face with CGA. pt had multiple LOB that occured backwards and to the R that required modA to correct. Functional mobility was then completed back to the lena chair where he was left sitting semi reclined in the dining mcbride under [facility] staff supervision with lap tray and body alarm in place for safety. Continue with rec D/C plan to SNF. JEAN PIERRE West/Ju
--- NOTE | 2019-08-19 07:56 | NUR ---
DR. CABRERA NOTIFIED FOR PODIARTY CONSULT FOR NAIL CARE.
--- NOTE | 2019-08-19 08:00 | NUR ---
Treatment Plan meeting was held with Dr. Larkin, COBY Diaz, RN, AT, MANUFACTURING ASSEMBLER-S and Building Construction Teacher in attendance. Plan for discharge Sunday. Pt. will return to [facility] at Discharge.
[2019-08-19 08:16] VITALS: BP 125/75
--- NOTE | 2019-08-19 10:00 | NUR ---
DAUGHTER CALLED IN FOR UPDATE, UPDATE PROVIDED. DAUGHTER QUESTIONING IF PT IS UP WALKING, ADVISED THAT THIS NURSE HAS NOT OBSERVED PT UP WALKING TODAY AND FROM THE NOTES PT WILL AMBULATE SHORT DISTANCES WITH PHYSICAL THERAPY.
--- NOTE | 2019-08-19 11:44 | NUR ---
AM GROUP PT ATTENDED MORNING GROUP THERAPY AND PARTICIPATED BY SITTING AT TABLE WITH PEERS AND READING THE NEWSPAPER. PT WAS QUIET AND CONTENT. PT EXHIBITED NO AGTITATION OR AGGRESSION WHILE IN GROUP.
--- NOTE | 2019-08-19 15:27 | NUR ---
Shift chart check completed.
--- NOTE | 2019-08-19 15:39 | NUR ---
PATIENT IS ALERT TO PERSON WITH CONFUSION; ABLE TO VOICE NEEDS. MOOD IS STABLE, NO AGGRESSION OBSERVED. NO VOICED STATEMENT OF HI/SI OR PAIN; NO RESPONSE TO INTERNAL STIMULI. MEDICATION COMPLAINT. Q 15 MINUTE SAFETY CHECKS MAINTAINED. INTERACTIVE WITH STAFF AND OTHER PATIENTS. PARTICIPATED IN GROUP SESSION. PATIENT AMBULATED UP AND DOWN HALLWAY INTERACTING WITH NURSE. PLEASANT AND CALM DEMEANOR. CONTINUE TO MONITOR FOR AGGRESSION AND REFUSAL OF MEDICATION. PROVIDE ONE ON ONE AND REDIRECTION NEEDED.
--- NOTE | 2019-08-19 15:45 | NUR ---
PM GROUP PT WAS PRESENT FOR AFTERNOON GROUP THERAPY BUT SLEPT MOST OF THE TIME. PT WAS AGITATED BY THE TRAY LOCKED ON THE PAMELLA CHAIR AND ONCE REMOVED WANTED TO WALK. NURSE AND MHW WALKED PT FOR A BIT AND THEN RETURNED AND FELL ASLEEP IN A COMFY CHAIR.
--- NOTE | 2019-08-19 16:09 | NUR ---
OCCUPATIONAL THERAPY CO-SIGN I approve of the Occupational Therapy notes written above. JOEL SILVA, OTR/L
[2019-08-19 20:00] VITALS: BP 118/70
--- NOTE | 2019-08-19 20:30 | NUR ---
EVENING/LEISURE SKILLS PT ATTENDED AND PARTICIPATED. PT JOKING WITH STAFF AND OTHER PT'S. PT ALSO WATCHING THE MOVIE PLAYING. PT EXPRESSES NO AGITATION OR AGGRESSION AT THIS TIME. PT WILL CONTINUE TO ATTEND FUTURE GROUP SESSIONS AND PARTICIPATE TO BEST OF PT ABILITY.
--- NOTE | 2019-08-19 21:31 | NUR ---
Patient alert to self only with confusion noted. Mood calm and cooperative at this time. Memory deficits noted. Patient denies any hallucinations,SI/HI, or delusions. No overt s/s of responding to internal stimuli noted at this time. Patient compliant with HS medications without any difficulty. Redirected/reoriented when needed/appropriate but unreceptive with this at times. Patient in gerichair in diningroom with other patients during snacks. Patient talking and joking with other patients and staff. Provided 1:1 for emotional support and therapeutic communication. Plan to continue to encourage medication compliance. Continue to redirect/reorient when needed/apppropriate and continue to provide emotional support. Will continue to monitor moods/behaviors. Q 15 minute safety checks continued and maintained. See [facility] flowsheet for further documentation.
--- NOTE | 2019-08-20 00:07 | NUR ---
24 HR chart check completed.
--- NOTE | 2019-08-20 05:48 | NUR ---
Patient slept approx. 5.5 hours throughout shift. Q 15 minute safety checks continued and maintained.
--- NOTE | 2019-08-20 07:05 | NUR ---
PHYSICAL THERAPY Patient seen this am for therapy visit and was sitting up in activity room Mimi chair upon therapist arrival. Patient identified by name / and was very pleasant voicing no new c/o's. OT clerical dentist assistant was present during CUSTOMER ENGAGEMENT MANAGER visit for observation only as patient transfers sit to stand CGA x 1. Patient ambulates CGA, wh walker, 50'x 2 to bathroom and back, demonstrating slow, steady wayne. Patient still has a mild R side gait deviation which requires therapist cues to correct. Patient was also less impulsive this session and returned to Mimi chair at table in activity room awaiting breakfast. Patient remained under [facility] staff Supervision and will continue per POC as tolerated. Total treatment time 16 minutes. Natan Barrera, RICHIE
--- NOTE | 2019-08-20 07:15 | NUR ---
OT NOTE Pt was seen this A.M. 1:1 for 15 minute OT session with PREPARING BOX TENDER and nursing staff present for observation only. Upon arrival pt was sitting upright in the lena chair in the dining mcbride. Pt identified by name and and had no complaints at this time. Pt was taken out into the hallway where he completed sit to stand from chair level with Yolanda and use of w/w for UE support. Functional mobility was then completed into the bathroom with CGA and use of w/w. Pt transferred on/off standard commode with Yolanda due to low surface. Functional mobility was then completed back to the lena chair with CGA and use of w/w. Pt was left sitting upright in the lena chair in the dining mcbride with body alarm activated for safety and under U staff supervision. Continue with rec D/c plan to SNF. JEAN PIERRE West/Ju
--- NOTE | 2019-08-20 08:00 | NUR ---
Treatment plan meeting was held with Dr. Larkin, COBY Diaz, RN, AT, MEDICAL ASSISTANT PER DIEM-S and Pretzel Twister in attendance. Plan for discharge today with return to [facility]. Mental Health and Primary care servies provided at Facility.
[2019-08-20 08:28] VITALS: BP 116/66
[2019-08-20] MEDS ORDERED: ROZEREM8 MG PO (10:42)
[2019-08-20] MEDS ORDERED: MEMANTINE HCL10 MG PO (10:42)
[2019-08-20] MEDS ORDERED: EXELON13.3 MG/21 T (10:42)
[2019-08-20] MEDS ORDERED: INVEGA SUSTENN156 MG IM (10:42)
[2019-08-20] MEDS ORDERED: MIRTAZAPINE15 M2 PO (10:42)
--- NOTE | 2019-08-20 11:43 | NUR ---
AM GROUP/EXERCISE AND BRAIN GAMES PT ATTENDED MORNING GROUP THERAPY AND PARTICIPATED IN ALL ACITIVITES. PT WAS FOCUSED AND ON TASK. PT WAS LAUGHING AND JOKING WITH STAFF AND PEERS. PT IS SET TO BE DISCHARGED FROM THE UNIT THIS AFTERNOON.
--- NOTE | 2019-08-20 11:51 | NUR ---
Spoke with Clotilde at [facility]. Notified of plans to discharge today and pick up operator time. Faxed discharge Paperwork to [place] Attn: Clotilde [phone].
--- NOTE | 2019-08-20 11:52 | NUR ---
NO ADVERSE MOODS OR BEHAVIORS THIS SHIFT. PT IS ALERT AND PLEASANTLY CONFUSED. ST/LT MEMORY GAPS NOTED. RESPS EASY AND EVEN ON ROOM AIR. MOOD IS STABLE, AFFECT APPROPRIATE. SPEECH IS WNL AND COHERENT, ABLE TO ANSWER SIMPLE QUESTIONS AND MAKE NEEDS KNOWN. PT DENIES SI/HI, INTENT OR PLAN. PT DENIES HALLUCINATIONS, NO RESPONSE TO INTERNAL STIMULI NOTED. NO PARANOIA OR DELUSIONS NOTED. PT CALM AND COOPERATIVE. NO PHYSICAL OR VERBAL AGGRESSION THIS SHIFT. PT IS MED COMPLIANT WITHOUT DIFFICULTY. FEEDS SELF WITH SET UP ASSIST. DISPLAYS GOOD APPETITE WITH ADEQUATE FLUID INTAKES. NO DISTRESS NOTED. PLAN TO CONTINUE CURRENT TX, CONTINUE TO MONITOR MOOD AND BEHAVIORS, PROVIDE APPROPRIATE REORIENTATION, REDIRECTION AND 1:1 NEEDED. ASSIST PT IN PREPARING FOR HOSPITAL DISCHARGE THIS DATE. NURSE TO NURSE REPORT GIVEN TO JUSTUS AT [facility]. DISCHARGE MEDICATION LIST FAXED TO FACILITY PER REQUEST.
--- NOTE | 2019-08-20 14:25 | NUR ---
Patient is discharging today returning to [facility]. Follow-up will be with Dr Larkin, visiting psychiatrist. While at [facility], pt's behaviors improved. Pt was no longer combative with care. He was pleasant and cooperative with staff and other patients.
--- NOTE | 2019-08-20 14:35 | NUR ---
PT DISCAHRGED TO [facility]IA [facility]. PT BELONGINGS AND DISCHARGE PACKET SENT WITH PT.
--- NOTE | 2019-08-21 07:33 | NUR ---
PHYSICAL THERAPY CO-SIGN I approve of the Physical Therapy notes written above. Nathalie Lion PT
--- NOTE | 2019-08-21 11:23 | NUR ---
OCCUPATIONAL THERAPY CO-SIGN I approve of the Occupational Therapy notes written above. NICOLE GILMAN OTR/Ju
== END 2019-08-20 14:35 | DRG 883 ==
LOC: 3N 00:36
PROVIDERS: Counselor Professional; ADMIT Psychiatry & Neurology Psychiatry
PROC: 0HBRXZZ Excision of Toe Nail, External Approach (ICD-10-PCS; principal; 2019-08-19)
DX: F63.81 Intermittent explosive disorder (principal); E44.1 Mild protein-calorie malnutrition; F02.81 Dementia in other diseases classified elsewhere, unspecified severity, with behavioral disturbance; G30.9 Alzheimer's disease, unspecified; I10 Essential (primary) hypertension; D64.9 Anemia, unspecified; B37.9 Candidiasis, unspecified; E11.65 Type 2 diabetes mellitus with hyperglycemia; F39 Unspecified mood [affective] disorder; K59.00 Constipation, unspecified; M19.91 Primary osteoarthritis, unspecified site; E66.9 Obesity, unspecified; L85.3 Xerosis cutis; E11.51 Type 2 diabetes mellitus with diabetic peripheral angiopathy without gangrene; B35.1 Tinea unguium; Z68.35 Body mass index [BMI] 35.0-35.9, adult; Z79.82 Long term (current) use of aspirin; Z79.899 Other long term (current) drug therapy